=== PATIENT | female | born 1950 | race Caucasian/White ===

== ENCOUNTER 2024-08-30 18:31 | Inpatient (IN) | payer MEDICARE, SELFPAY ==
[2024-08-30 18:33] VITALS: BP 119/66; PULSE 89; RESP 16; TEMP 36.8; O2SAT 96; BMI 26.0
[2024-08-30 18:34] VITALS: BP 119/66; PULSE 89; RESP 16; TEMP 36.8; O2SAT 96
[2024-08-30 19:21] LABS: Absolute Lymphocyte Count 1.27 X10^3/uL (0.83-4.51); Absolute Neutrophil Count 11.1 X10^3/uL (2.0-7.7); Basophil# 0.05 X10^3/uL; Basophil% 0.4 % (0-1); Eosinophil# 0.01 X10^3/uL; Eosinophils% 0.1 % (0-5); Hemoglobin 13.2 g/dL (12.0-15.0); Lymphocyte # 1.27 X10^3/ul (0.83-4.51); Lymphocyte % 9.1 % (19-41); Mean Corp Hgb Conc 36.7 g/dL (32-36); Mean Corpuscular Hgb 33.2 pg (27.0-32.0); Mean Corpuscular Volume 90.5 fL (81-99); Mean Platelet Vol. 10.2 fl (6.2-12.0); Monocyte# 1.44 X10^3/uL; Monocyte% 10.3 % (0-10); NRBC Flagged by Analyzer 0 % (0-5); Neutrophil # 11.05 X10^3/uL (2.7-7.7); Neutrophil % 79.4 % (47-70); POSITIVE COUNT YES; Platelet Count 306 K/mm3 (150-450); RBC Distribution Width CV 12.3 % (11.6-14.6); Red Blood Count 3.98 M/mm3 (4.2-5.4); White Blood Count 13.9 K/mm3 (4.4-11.0)
[2024-08-30] MEDS: Ketorolac 15 MG/ML Vial IV (19:23)
[2024-08-30] MEDS: 0.9% Normal Saline (1000mL) 1,000 ML 999 ML IV (19:24)
--- NOTE | 2024-08-30 19:30 | CT_ITS ---
PROCEDURE: ABDOMEN/PELVIS WITHOUT CONT 08/30/2024 REASON FOR EXAM: L FLANK PAIN TECHNIQUE: Abdomen and pelvis CT without intravenous contrast. Noncontrast technique limits evaluation of the abdominal and pelvic viscera. Coronal and Sagittal reconstruction series were provided. One or more dose reduction techniques were used (e.g., Automated exposure control, adjustment of the mA and/or kV according to patient size, use of iterative reconstruction technique). PATIENT PREPARATION: Per protocol ORAL CONTRAST TYPE: None. AMOUNT: mL COMPARISON: None FINDINGS: Lung bases: Mild dependent atelectasis Liver: Homogeneous attenuation. Subcentimeter low-attenuation medial right hepatic lobe, too small to characterize is likely a benign cyst. Gallbladder: No ductal dilation. No cholelithiasis or wall thickening. Spleen: Normal size. Pancreas: Normal size. No surrounding inflammation. Adrenals: 28 mm left adrenal soft tissue attenuation lesion and 16 mm right adrenal low-attenuation nodule. These likely represent adenomas. Kidneys: Nonspecific bilateral perinephric soft tissue stranding, slightly more prominent on the left. No visualized calculi or hydronephrosis. Distal ureters are not well visualized due to streak artifact from bilateral hip hardware. Bladder: Limited visualization of the urinary bladder, due to streak artifact from hepatoma. Reproductive Organs: Within the limits of evaluation, from streak artifact, no obvious pelvic mass. Bowel: Small hiatal hernia. Stomach is unremarkable. No bowel dilation or wall thickening. Colonic diverticulosis without diverticulitis. Appendix: The appendix is not identified. There is no inflammatory process identified in the right lower quadrant to suggest appendicitis. Lymph nodes: No suspicious lymph node enlargement. Vasculature: Mild diffuse atherosclerotic calcifications are noted. Peritoneum / Retroperitoneum: No ascites. No pneumoperitoneum. Bones: Mild degenerative changes of the lumbar spine. Grade 1 anterolisthesis of L4 on L5. Bilateral hip prosthesis.. CT/Abdomen/Pelvis without Cont IMPRESSION: 1. Nonspecific [id number]-[id number]-vusb-right perinephric soft tissue stranding. Find ings may be secondary to acute pyelonephritis. 2. Colonic diverticulosis without diverticulitis. 3. Adrenal lesions as described above, likely represent adenomas. [facility]
[2024-08-30 19:41] LABS: Mucous, Urine 0 SEEN /hpf (<or=2+)
[2024-08-30 19:43] LABS: Color, Urine Yellow (Yellow); Glucose, Dipstick Normal (Normal); Ketone-Dipstick 50 mg/dl (Negative); Leukocyte Esterase-Dipstick 100 /ul (Negative); Nitrite-Dipstick Negative (Negative); Occult Blood-Urine 25 /ul (Negative); Protein-Dipstick 30 mg/dl (Negative); Specific Gravity, Urine 1.015 (1.002-1.030); Urine Bilirubin Dipstick Negative (Negative); Urine Clarity Clear (Clear); Urine Urobilinogen 4 mg/dl (Normal)
[2024-08-30 19:52] LABS: Differential Indicated SCAN CRITERIA MET
[2024-08-30 19:53] LABS: Platelet Estimate ADEQUATE (ADEQ)
--- NOTE | 2024-08-30 19:55 | EX.ED.DYSGE1 ---
HPI <PEGGY Gonzalez - Last Filed: 08/30/24 21:33> History of Present Illness Chief Complaint: Weakness Narrative Narrative: Patient presenting today due to concerns for UTI. She reports dysuria and urinary frequency since Tuesday, she went to urgent care on Tuesday and was diagnosed with a UTI and placed on Keflex twice daily. She reports that she has had 4 doses of this medication since Tuesday. She reports feeling slightly confused over the past few days, she describes this as having increased forgetfulness but not necessarily having any delirium. She denies history of UTIs. She reports that since yesterday she has had left-sided flank pain that radiates across her lower abdomen. She denies any history of kidney stones. She has a PMH of hypertension. She denies fevers, chills, nausea, and vomiting. PFSH <PEGGY Gonzalez - Last Filed: 08/30/24 21:33> PFSH Medical History Tobacco use Hypertension Home Medications ?Medication ?Instructions ?Recorded ?Last Taken ?Type ammonium lactate 12 % topical cream applic topical DAILY PRN dry skin 08/30/24 Unknown History cephalexin 500 mg capsule 500 mg PO BID 08/30/24 Unknown History losartan 100 1 tab PO DAILY 08/30/24 Unknown History mg-hydrochlorothiazide 25 mg tablet metoprolol succinate 100 mg 100 mg PO DAILY 08/30/24 Unknown History tablet,extended release 24 hr Allergy/AdvReac Type Severity Reaction Status Date / Time No Known Allergies Allergy Verified 08/30/24 18:32 Family History (Updated 08/30/24 @ 21:[address] Lisa Mariscal MD) Mother Diabetes Father Colon cancer Diagnosed in his 60s. Surgical History S/P appendectomy History of tonsillectomy and adenoidectomy Status post bilateral total hip replacement Social History (Updated 08/30/24 @ 21:[address] Lisa Mariscal MD) household members: spouse Smoking Status: Current some day smoker tobacco type: cigarettes alcohol intake: current alcohol intake frequency: 0-2 drinks per day Alcohol type: wine substance use type: does not use ROS <PEGGY Gonzalez - Last Filed: 08/30/24 21:33> ROS ED Constitutional Constitutional ED: Denies chills or fever(s) Cardiovascular Cardiovascular: Denies chest pain Respiratory/Chest Respiratory/Chest: Denies dyspnea Gastrointestinal Gastrointestinal: Reports abdominal pain; Denies nausea or vomiting Genitourinary Genitourinary ED: Reports dysuria and urinary frequency; Denies hematuria Musculoskeletal Musculoskeletal: Reports back pain Integumentary Denies rash Neurologic Neurologic: Denies weakness EXAM <PEGGY Gonzalez - Last Filed: 08/30/24 21:33> Physical Exam Const Vital Signs: 08/30/24 18:33 08/30/24 18:34 08/30/24 19:02 Temperature 98.3 F 98.3 F Temperature Source Oral Oral Pulse Rate 89 89 Respiratory Rate 16 16 Respiratory Effort Normal Non-Labored Respiratory Pattern Normal Blood Pressure 119/66 119/66 Blood Pressure Mean 83 83 Pulse Ox 96 96 Oxygen Delivery Method Room Air Room Air 08/30/24 20:00 08/30/24 21:00 08/30/24 21:00 Temperature 98.1 F 98.1 F 98.1 F Temperature Source Oral Oral Pulse Rate 76 72 71 Respiratory Rate 16 18 18 Respiratory Effort Respiratory Pattern Blood Pressure 157/77 H 154/65 H 154/65 H Blood Pressure Mean 103 94 94 Pulse Ox 97 97 97 Oxygen Delivery Method Room Air Room Air Positive well nourished, well developed and no apparent distress General Appearance ED: well developed HEENT Reports normocephalic and head/scalp atraumatic Mouth ED: Yes moist mucous membranes normal Eyes PERRL and EOMs intact bilaterally Neck full ROM and supple Chest Wall inspection of chest normal Resp normal respiratory effort and clear to auscultation bilaterally Cardio regular rate and regular rhythm GI soft to palpation, non-tender, non-distended and no masses Back/Spine normal ROM and normal to inspection General Back: CVA tenderness left Extremity normal to inspection and full ROM Neuro oriented x3, CN's II-XII intact bilaterally, moves all extremities, no focal motor deficits and no sensory deficits noted Sensorium / Orientation: awake and alert Psych mental status grossly normal and thought process normal Skin no rashes or lesions noted and no wounds <Dr. Darci Simpson DO - Last Filed: 08/31/24 02:23> Physical Exam Const Vital Signs: 08/30/24 18:33 08/30/24 18:34 08/30/24 19:02 Temperature 98.3 F 98.3 F Temperature Source Oral Oral Pulse Rate 89 89 Respiratory Rate 16 16 Respiratory Effort Normal Non-Labored Respiratory Pattern Normal Blood Pressure 119/66 119/66 Blood Pressure Mean 83 83 Pulse Ox 96 96 Oxygen Delivery Method Room Air Room Air 08/30/24 20:00 08/30/24 21:00 08/30/24 21:00 Temperature 98.1 F 98.1 F 98.1 F Temperature Source Oral Oral Pulse Rate 76 72 71 Respiratory Rate 16 18 18 Respiratory Effort Respiratory Pattern Blood Pressure 157/77 H 154/65 H 154/65 H Blood Pressure Mean 103 94 94 Pulse Ox 97 97 97 Oxygen Delivery Method Room Air Room Air [facility] <PEGGY Gonzalez - Last Filed: 08/30/24 21:33> [facility] Narrative Medical decision making narrative: Patient presenting today with urinary symptoms that have been ongoing since Tuesday, yesterday she developed urinary frequency. She was diagnosed with UTI on Tuesday and placed on Keflex twice daily which she has had 4 doses of. She reports that they did notice some blood in her urine. She does have left-sided CVA tenderness, CT scan of the abdomen pelvis will be obtained to assess for kidney stone. Also considering pyelonephritis. She reports confusion in the ED triage note, when asked to explain this she reports that she has just been more forgetful, she is not necessarily delirious and is alert and oriented x 4 on exam. Labs obtained, CBC shows a WBC of 13.9, her sodium is low at 125, potassium is 2.8, chloride 85, no RAFAELA. Patient given IV fluids, Toradol, and p.o. potassium. CT scan of the abdomen pelvis is concerning for pyelonephritis. I do feel she would benefit from admission to the hospital for further treatment with IV antibiotics, after speaking with hospitalist she will be admitted in stable condition. Lab Data Attestation: I reviewed the patient's lab results. Labs: Laboratory Results - last 24 hr 08/30/24 08/30/24 19:05 19:28 WBC 13.9 H RBC 3.98 L Hgb 13.2 Hct 36.0 L MCV 90.5 MCH 33.2 H MCHC 36.7 H RDW Std Deviation 41.0 RDW Coeff of [place] 12.3 Plt Count 306 MPV 10.2 Immature Gran % (Auto) 0.700 Neut % (Auto) 79.4 H Lymph % (Auto) 9.1 L [place] % (Auto) 10.3 H Eos % (Auto) 0.1 Baso % (Auto) 0.4 Absolute Neuts (auto) 11.1 H Absolute Lymphs (auto) 1.27 Nucleated RBC % 0 Platelet Estimate ADEQUATE Sodium 125 L Potassium 2.8 L Chloride 85 L Carbon Dioxide 26.3 Anion Gap 14 BUN 15 Creatinine 0.62 L Estim Creat Clear Calc 49.40 L Est GFR (MDRD) Non-Af 93 BUN/Creatinine Ratio 23.8 H Glucose 162 H Lactic Acid < 1.0 Calcium 9.1 Phosphorus 2.8 Magnesium 2.2 Urine Color Yellow Urine Clarity Clear Urine pH 6.0 Ur Specific [place] 1.015 Urine Protein 30 H Urine Glucose (UA) Normal Urine Ketones 50 H Urine Occult Blood 25 H Urine Nitrite Negative Urine Bilirubin Negative Urine Urobilinogen 4 H Ur Leukocyte Esterase 100 H Urine RBC 0-5 SEEN Urine WBC 10-25 SEEN Ur Squamous Epith Cells 0-5 SEEN Urine Bacteria 1+ Hyaline Casts 0-5 SEEN Urine Mucus 0 SEEN Radiography Diagnostic Testing: Clinical Impression(s) from Imaging Studies Abdomen/Pelvis CT 08/30/24 19:30 IMPRESSION: 1. Nonspecific dpeu-yfvonrt-gepz-right perinephric soft tissue stranding. Findings may be secondary to acute pyelonephritis. 2. Colonic diverticulosis without diverticulitis. 3. Adrenal lesions as described above, likely represent adenomas. Reading Location: [facility] <Dr. Darci Simpson, DO - Last Filed: 08/31/24 02:23> [facility] Narrative Medical decision making narrative: Patient presenting today with urinary symptoms that have been ongoing since Tuesday, yesterday she developed urinary frequency. She was diagnosed with UTI on Tuesday and placed on Keflex twice daily which she has had 4 doses of. She reports that they did notice some blood in her urine. She does have left-sided CVA tenderness, CT scan of the abdomen pelvis will be obtained to assess for kidney stone. Also considering pyelonephritis. She reports confusion in the ED triage note, when asked to explain this she reports that she has just been more forgetful, she is not necessarily delirious and is alert and oriented x 4 on exam. Labs obtained, CBC shows a WBC of 13.9, her sodium is low at 125, potassium is 2.8, chloride 85, no RAFAELA. Patient given IV fluids, Toradol, and p.o. potassium. CT scan of the abdomen pelvis is concerning for pyelonephritis. I do feel she would benefit from admission to the hospital for further treatment with IV antibiotics, after speaking with hospitalist she will be admitted in stable condition. Supervisory Physician Note Patient was seen and examined with the Advanced Practice Provider. Nursing notes and vital signs have been reviewed. Pertinent old records have been reviewed. I agree with the essential elements of the [facility]'s history, physical exam, assessment, and plan. The differential diagnosis and management options were discussed with the [facility]. I participated in determining and agree with the management, procedures, final impression and disposition as documented. See changes noted by me. Please see addendum or separate note for any additional details. 73-year-old female presents for evaluation of weakness, dysuria, left flank pain with current UTI. On antibiotics. Decreased p.o. intake. Gen: A&O x3, NAD Head: Normocephalic, atraumatic Eyes: No sclera icterus, conjunctiva clear ENT: Dry mucous membranes Neck: Trachea midline, No JVD CV: RRR, no murmurs, no peripheral edema Resp: Lungs CTA BL, no w/r/c GI: Abd soft, non-distended, non-tender, no r/r/g : + Left-sided CVA tenderness Musc: Full ROM, no deformity Skin: Warm, dry Neuro: Alert, oriented, grossly intact, sensation intact Psych: Cooperative, appropriate mood and affect Differential diagnosis includes but is not limited to pyelonephritis, urolithiasis, electrolyte abnormality, RAFAELA. Laboratory workup ordered including CT abdomen pelvis without contrast. Symptoms treated. CBC with leukocytosis of 13.9. No anemia. BMP consistent with dehydration. Patient has hyponatremia 125 and hypokalemia of 2.8. No RAFAELA. Lactic acid unremarkable. Potassium ordered. UA positive for UTI. Urine culture ordered. CT abdomen pelvis shows nonspecific left greater than right perinephric soft tissue stranding. Findings concerning for acute pyelonephritis. This correlates clinically. Rocephin ordered. Patient will warrant admission given her electrolyte derangements. Patient was discussed with the hospitalist who accepted admission. CT abdomen pelvis also showed likely adrenal adenomas. This needs to be further worked up outpatient. Impression: 1. Left pyelonephritis 2. Moderate hyponatremia 3. Moderate hypokalemia 4. Dehydration Lab Data Labs: Laboratory Results - last 24 hr 08/30/24 08/30/24 19:05 19:28 WBC 13.9 H RBC 3.98 L Hgb 13.2 Hct 36.0 L MCV 90.5 MCH 33.2 H MCHC 36.7 H RDW Std Deviation 41.0 RDW Coeff of [place] 12.3 Plt Count 306 MPV 10.2 Immature Gran % (Auto) 0.700 Neut % (Auto) 79.4 H Lymph % (Auto) 9.1 L [place] % (Auto) 10.3 H Eos % (Auto) 0.1 Baso % (Auto) 0.4 Absolute Neuts (auto) 11.1 H Absolute Lymphs (auto) 1.27 Nucleated RBC % 0 Platelet Estimate ADEQUATE Sodium 125 L Potassium 2.8 L Chloride 85 L Carbon Dioxide 26.3 Anion Gap 14 BUN 15 Creatinine 0.62 L Estim Creat Clear Calc 49.40 L Est GFR (MDRD) Non-Af 93 BUN/Creatinine Ratio 23.8 H Glucose 162 H Lactic Acid < 1.0 Calcium 9.1 Phosphorus 2.8 Magnesium 2.2 Urine Color Yellow Urine Clarity Clear Urine pH 6.0 Ur Specific [place] 1.015 Urine Protein 30 H Urine Glucose (UA) Normal Urine Ketones 50 H Urine Occult Blood 25 H Urine Nitrite Negative Urine Bilirubin Negative Urine Urobilinogen 4 H Ur Leukocyte Esterase 100 H Urine RBC 0-5 SEEN Urine WBC 10-25 SEEN Ur Squamous Epith Cells 0-5 SEEN Urine Bacteria 1+ Hyaline Casts 0-5 SEEN Urine Mucus 0 SEEN Radiography Diagnostic Testing: Clinical Impression(s) from Imaging Studies Abdomen/Pelvis CT 08/30/24 19:30 IMPRESSION: 1. Nonspecific [id number]-rnodaad-gekq-right perinephric soft tissue stranding. Findings may be secondary to acute pyelonephritis. 2. Colonic diverticulosis without diverticulitis. 3. Adrenal lesions as described above, likely represent adenomas. Reading Location: [facility] Discharge Plan Dx/Rx/DC Orders Clinical Impression: Acute pyelonephritis Disposition Disposition: Acute Care Hospital [facility] Discharge Date/Time: 08/30/24 21:55
[2024-08-30 19:58] LABS: Anion Gap 14 (5-15); BUN 15 mg/dL (4-19); BUN/Creat Ratio 23.8 RATIO (10-20); Calcium,Total 9.1 mg/dL (7.6-11.0); Carbon Dioxide 26.3 mmol/L (21.0-32.0); Chloride 85 mmol/L (98-108); Creatinine, Serum 0.62 mg/dL (0.70-1.20); EST Glomerular Filtration Rate 93 (>60); Glucose 162 mg/dL (70-99); Lactic Acid < 1.0 mmol/L (0.0-2.0); Potassium 2.8 mmol/L (3.3-5.1); Sodium Level 125 mmol/L (133-145)
[2024-08-30 20:00] VITALS: BP 157/77; PULSE 76; RESP 16; TEMP 36.7; O2SAT 97
[2024-08-30] MEDS: Ceftriaxone 1 GM/50 ML BAG IV (20:27)
[2024-08-30] MEDS: Potassium Chloride Oral Tablet 20 MEQ 40 MEQ PO (20:27)
[2024-08-30 20:44] LABS: White Blood Cells 10-25 SEEN /hpf (0-5)
[2024-08-30 20:45] LABS: Bacteria 1+ /hpf (None Seen); Red Blood Cells-Urine 0-5 SEEN /hpf (0-5)
[2024-08-30 20:46] LABS: Hyaline Cast 0-5 SEEN /lpf (0-5); Squamous Epithelial Cells - UA 0-5 SEEN /hpf (5-10)
[2024-08-30 21:00] VITALS: BP 154/65; PULSE 71; PULSE 72; RESP 18; TEMP 36.7; O2SAT 97
--- NOTE | 2024-08-30 21:14 | PCM.HP.STD ---
HPI - General General Date of Admission: 08/30/24 Date of Service: 08/30/24 Chief Complaint: Recent UTI diagnosis, onset new flank pain, mild confusion. HPI Narrative The patient is a 73 y/o F w/ PMHx: Tobacco use, HTN who presents to the [facility] ED on 08/30/2024 with history of onset dysuria and urinary frequency starting Tuesday with urgent care evaluation eventually on Tuesday with diagnosis of UTI placed on Keflex specifically filled 08/28/2024 filled Keflex 500 mg 1 p.o. twice daily x 7-day regimen with 4 doses of this medication with increased fatigue, malaise, slight confusion described as a forgetfulness with onset of left-sided flank discomfort with radiation across the lower abdomen with no fevers or chills but given this new onset prompted ED evaluation. She notes the flank discomfort was rated 8-9 out of 10 in severity aching and sharp however following ED intervention she currently ranks it 1 out of 10 in severity. She denies any nausea or emesis with this but does state that she has had significantly decreased appetite. Workup in the ED included T98.3, heart rate 89, BP 119/66, respiratory rate 16, 96% on room air with most recent repeat labs T98.1, heart rate 76, BP 157/77, respiratory rate 16, 97% room air, CBC with WBC 13.9, hemoglobin 13.2, platelet 306 with left shift, BMP with sodium 125, potassium 2.8 with hemolysis present less likely mildly falsely elevated above True Value, chloride 85, BUN/creatinine 15/0.62, GFR 93, glucose 162, lactic acid less than 1, urinalysis with specific value 1.015, urine protein 30, ketones 50, occult blood 25, leukocyte Estrace 100 with urine WBCs 10-25 with 1+ urine bacteria, urine culture pending per ED, CT abdomen and pelvis without any contrast with nonspecific left greater than right perinephric soft tissue stranding possibly secondary to acute pyelonephritis, colonic diverticulosis, incidentally noted 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 In the ED patient administered 1 L normal saline, Rocephin 1 g IV x 1, Toradol 50 mg IV x 1, potassium chloride 40 mill equivalent p.o. x 1. [facility] Medical History Tobacco use Hypertension Home Medications ?Medication ?Instructions ?Recorded ?Last Taken ?Type ammonium lactate 12 % topical cream applic topical DAILY 08/30/24 Unknown History cephalexin 500 mg capsule 500 mg PO BID 08/30/24 Unknown History losartan 100 1 tab PO DAILY 08/30/24 Unknown History mg-hydrochlorothiazide 25 mg tablet metoprolol succinate 100 mg 100 mg PO DAILY 08/30/24 Unknown History tablet,extended release 24 hr Allergy/AdvReac Type Severity Reaction Status Date / Time No Known Allergies Allergy Verified 08/30/24 18:32 Family History (Updated 08/30/24 @ 21:[address] Lisa Mariscal MD) Mother Diabetes Father Colon cancer Diagnosed in his 60s. Surgical History S/P appendectomy History of tonsillectomy and adenoidectomy Status post bilateral total hip replacement Social History (Updated 08/30/24 @ 21:[address] Lisa Mariscal MD) household members: spouse Smoking Status: Current some day smoker tobacco type: cigarettes alcohol intake: current alcohol intake frequency: 0-2 drinks per day Alcohol type: wine substance use type: does not use ROS ROS Narrative Admission Review of Systems: CONSTITUTIONAL: No weight loss, fever, chills, + weakness or fatigue. HEENT: Eyes: No visual loss, blurred vision, double vision or yellow sclerae. Ears, Nose, Throat: No hearing loss, sneezing, congestion, runny nose or sore throat. SKIN: No rash or itching, lesions, wounds. CARDIOVASCULAR: No chest pain, chest pressure or chest discomfort, palpitations, edema, orthopnea, syncopal events. RESPIRATORY: No shortness of breath, cough or sputum, wheezing, hemoptysis. GASTROINTESTINAL: + Decreased appetite/anorexia. No nausea, vomiting or diarrhea, abdominal pain, melena, BRBPR. GENITOURINARY: + Dysuria, increased urinary frequency, flank discomfort. No urgency or retention. NEUROLOGICAL: No headache, dizziness, syncope, paralysis, ataxia, numbness or tingling in the extremities, focal weakness, change in bowel or bladder control, seizure. MUSCULOSKELETAL: + muscle, back pain, joint pain or stiffness. HEMATOLOGIC: No anemia, bleeding or bruising. LYMPHATICS: No enlarged nodes. No history of splenectomy. PSYCHIATRIC: No history of depression or anxiety. ENDOCRINOLOGIC: No reports of sweating, cold or heat intolerance. No polyuria or polydipsia. ALLERGIES: No history of asthma, hives, eczema or rhinitis. Vital Signs Vital Signs Vital Signs: 08/30/24 18:33 08/30/24 18:34 08/30/24 19:02 Temperature 98.3 F 98.3 F Temperature Source Oral Oral Pulse Rate 89 89 Respiratory Rate 16 16 Respiratory Effort Normal Non-Labored Respiratory Pattern Normal Blood Pressure 119/66 119/66 Blood Pressure Mean 83 83 Pulse Ox 96 96 Oxygen Delivery Method Room Air Room Air 08/30/24 20:00 Temperature 98.1 F Temperature Source Oral Pulse Rate 76 Respiratory Rate 16 Respiratory Effort Respiratory Pattern Blood Pressure 157/77 H Blood Pressure Mean 103 Pulse Ox 97 Oxygen Delivery Method Room Air Weight Weight: 133 lb 6.4 oz Body Mass Index (BMI) 26.0 Physical Exam Narrative Physical Examination: General: Awake, alert, oriented x 3 and cooperative, seated upright in the ED bed, fatigued otherwise no acute distress, notes flank discomfort improved currently 1 out of 10 in severity. Skin: Normal color, normal turgor, no icterus, no cyanosis. HEENT: AT/NC, EOMI, PERRLA, moderately dry MM, no carotid bruits or JVD noted. Lungs: CTA bilaterally, moderate effort, mild decrease BL bases, no rales, ronchi or wheezing. Heart: Regular rate and rhythm; no gallop, rub audible. Abdomen: Soft, mild discomfort to palpation primarily of the left flank but minimal, not significantly improved since initial ED arrival, no marked distention, hyperactive BS, no HSM discerned. Extremities: No cyanosis, clubbing, or edema. Neurological: Patient awake, alert, oriented as noted, cognitive function intact; pupils equally reactive to light and accommodation, cranial nerves gross normal, moving all 4 extremities, no focal deficits, strength moderately globally decreased secondary to acute presentation. Psychiatric: Affect appears flat, fatigued, no acute evidence of depressive or anxiety feelings. Results Lab / Micro Data 08/30/24 19:05 08/30/24 19:05 Labs: Laboratory Results - last 24 hr 08/30/24 19:05: WBC 13.9 H, RBC 3.98 L, Hgb 13.2, Hct 36.0 L, MCV 90.5, MCH 33.2 H, MCHC 36.7 H, RDW Std Deviation 41.0, RDW Coeff of [place] 12.3, Plt Count 306, MPV 10.2, Immature Gran % (Auto) 0.700, Neut % (Auto) 79.4 H, Lymph % (Auto) 9.1 L, [place] % (Auto) 10.3 H, Eos % (Auto) 0.1, Baso % (Auto) 0.4, Absolute Neuts (auto) 11.1 H, Absolute Lymphs (auto) 1.27, Nucleated RBC % 0, Platelet Estimate ADEQUATE, Sodium 125 L, Potassium 2.8 L, Chloride 85 L, Carbon Dioxide 26.3, Anion Gap 14, BUN 15, Creatinine 0.62 L, Estim Creat Clear Calc 49.40 L, Est GFR (MDRD) Non-Af 93, BUN/Creatinine Ratio 23.8 H, Glucose 162 H, Lactic Acid < 1.0, Calcium 9.1 08/30/24 19:28: Urine Color Yellow, Urine Clarity Clear, Urine pH 6.0, Ur Specific [place] 1.015, Urine Protein 30 H, Urine Glucose (UA) Normal, Urine Ketones 50 H, Urine Occult Blood 25 H, Urine Nitrite Negative, Urine Bilirubin Negative, Urine Urobilinogen 4 H, Ur Leukocyte Esterase 100 H, Urine RBC 0-5 SEEN, Urine WBC 10-25 SEEN, Ur Squamous Epith Cells 0-5 SEEN, Urine Bacteria 1+, Hyaline Casts 0-5 SEEN, Urine Mucus 0 SEEN Imaging Radiology Impression Abdomen/Pelvis CT 08/30/24 19:30 IMPRESSION: 1. Nonspecific [id number]-right perinephric soft tissue stranding. Findings may be secondary to acute pyelonephritis. 2. Colonic diverticulosis without diverticulitis. 3. Adrenal lesions as described above, likely represent adenomas. Reading Location: [facility] Assessment & Plan Assessment/Plan (1) Acute pyelonephritis: PLAN: Plan The patient is a 73 y/o F w/ PMHx: Tobacco use, HTN who presents to the [facility] ED on 08/30/2024 with history of onset dysuria and urinary frequency starting Tuesday with urgent care evaluation eventually on Tuesday with diagnosis of UTI placed on Keflex specifically filled 08/28/2024 filled Keflex 500 mg 1 p.o. twice daily x 7-day regimen with 4 doses of this medication with increased fatigue, malaise, slight confusion described as a forgetfulness with onset of left-sided flank discomfort with radiation across the lower abdomen with no fevers or chills but given this new onset prompted ED evaluation. #1. Debility, Fatigue, Possible mild Acute Encephalopathy with Adult FTT secondary to Acute Pyelonephritis, unclear organism with failure of outpatient abx therapy: Will admit to [facility] given stable vital signs, UA upon ED evaluation remarkable, pending UCx, maintain on judicious IVFs, monitor I/Os, continue IV Rocephin w/ transition as able pending sensitivities and speciation. Will maintain on fall precautions. PT/OT/case management consulted for discharge planning. #2. Hyponatremia, hypochloremia, suspect hypovolemic etiology in addition to diuretic medication given current presentation: Admission sodium 125, chloride 85, unclear previous baseline thus uncertain but does appear to be consistent with more hypovolemic etiology, will continue hydration and repeat CMP in AM. #3. Hypokalemia: Admission K+ 2.8, likely further decreased from this value secondary being slightly hemolyzed, magnesium level requested, supplementation given, repeat level in AM. #4. Hyperglycemia: No reported diabetic history, admission glucose 162, to be cautious will obtain hemoglobin A1c. #5. Incidentally noted adrenal lesions: CT imaging with adrenal lesions suspicious for adenomas, encouraged continued follow-up outpatient. #6. Hypertension: Will continue patient home losartan regimen however will hold hydrochlorothiazide given electrolyte disturbances, continue metoprolol also with hold parameters. #7. Tobacco Abuse: Encouraged cessation, inpatient consultation per RT, NR if desired. #8. DVT prophylaxis: Lovenox. #9. CODE status: Patient HCPOA is her and living will is per her description in place. Discussed CODE status at length including difference between FULL code, DNR-CCA and DNR-CC status. Following discussions about the differences in these status, requested Full Code status. Charges/Coding Visit Charges Inpatient E&M: 46813 Init Hosp L3
[2024-08-30 21:58] LABS: Magnesium 2.2 mg/dL (1.5-2.2)
[2024-08-30 22:06] VITALS: BMI 26.4
[2024-08-30 22:28] VITALS: BP 132/64; PULSE 77; RESP 18; TEMP 36.9; O2SAT 97
[2024-08-30 22:48] LABS: Phosphorus 2.8 mg/dL (2.7-4.5)
[2024-08-30] MEDS: 0.9% Saline Lock 10 ML Syringe IV (22:52)
[2024-08-30] MEDS: 0.9% Normal Saline (1000mL) 1,000 ML 100 ML IV (22:52)
[2024-08-30] MEDS: Potassium Chloride Oral Tablet 20 MEQ PO (22:52)
[2024-08-31 05:54] VITALS: BP 115/66; PULSE 89; RESP 18; TEMP 37.7; O2SAT 97
[2024-08-31 05:58] VITALS: BMI 26.6
[2024-08-31] MEDS: Acetaminophen 325 MG Tablet 650 MG PO (05:59)
[2024-08-31 07:20] LABS: Absolute Lymphocyte Count 1.66 X10^3/uL (0.83-4.51); Basophil# 0.04 X10^3/uL; Basophil% 0.4 % (0-1); Eosinophil# 0.05 X10^3/uL; Eosinophils% 0.4 % (0-5); Hematocrit 32.9 % (37-47); Hemoglobin 11.6 g/dL (12.0-15.0); Lymphocyte # 1.66 X10^3/ul (0.83-4.51); Lymphocyte % 14.7 % (19-41); Mean Corp Hgb Conc 35.3 g/dL (32-36); Mean Corpuscular Hgb 32.8 pg (27.0-32.0); Mean Corpuscular Volume 92.9 fL (81-99); Monocyte# 1.49 X10^3/uL; Monocyte% 13.2 % (0-10); NRBC Flagged by Analyzer 0 % (0-5); Neutrophil # 7.99 X10^3/uL (2.7-7.7); Neutrophil % 70.6 % (47-70); Platelet Count 304 K/mm3 (150-450); RBC Distribution Width CV 12.5 % (11.6-14.6); Red Blood Count 3.54 M/mm3 (4.2-5.4); White Blood Count 11.3 K/mm3 (4.4-11.0)
[2024-08-31 07:32] VITALS: O2SAT 94
[2024-08-31 07:47] LABS: ALB/GLOB Ratio 1.4 RATIO (0.9-2.4); AST(SGOT) 21 U/L (<=31); Alanine Aminotransfer ALT/SGPT 18 U/L (<=34); Albumin, Serum 3.2 g/dL (3.4-4.8); Alkaline Phosphatase 41 U/L (35-104); Anion Gap 13 (5-15); BUN 15 mg/dL (4-19); BUN/Creat Ratio 28.8 RATIO (10-20); Calcium,Total 8.4 mg/dL (7.6-11.0); Chloride 92 mmol/L (98-108); Creatinine, Serum 0.52 mg/dL (0.70-1.20); EST Glomerular Filtration Rate 97 (>60); Estimated Creatinine Clearance 49.74 ml/min (50-250); Globulin 2.3 g/dL (2.2-4.2); Glucose 110 mg/dL (70-99); Potassium 3.2 mmol/L (3.3-5.1); Protein, Total 5.5 g/dL (5.9-8.4); Sodium Level 128 mmol/L (133-145); Total Bilirubin 0.37 mg/dL (0.00-1.30)
[2024-08-31 08:00] VITALS: BP 119/64; PULSE 71; RESP 15; TEMP 36.7; O2SAT 94
[2024-08-31 08:21] VITALS: PULSE 71
[2024-08-31 08:21] LABS: Hemoglobin A1c 5.6 % (<=5.6)
[2024-08-31] MEDS: Potassium Chloride Oral Tablet 20 MEQ 40 MEQ PO (08:21)
[2024-08-31] MEDS: Metoprolol(XL)Succ 100 MG Tablet PO (08:21)
[2024-08-31] MEDS: 0.9% Normal Saline (1000mL) 1,000 ML 250 ML IV (08:22)
[2024-08-31] MEDS: Enoxaparin 40 MG/0.4 ML Syringe SC (08:22)
[2024-08-31] MEDS: Losartan Potassium 100 MG Tablet PO (08:24)
--- NOTE | 2024-08-31 10:43 | PCM.PN.HOSP ---
Reason for Visit Reason for Visit: Diagnoses Acute pyelonephritis (08/30/24) Subjective Subjective Saw patient at bedside this morning. Patient was mildly fatigued appearing but otherwise sitting back comfortably in bedside chair, conversing normally and in no acute distress. States that she feels moderately better today compared to yesterday. Has only mild flank pain this morning. Denies any fevers or chills. No other new concerns today. Objective Data Objective Data Vital Signs: Vital Signs Temp Pulse Resp BP Pulse Ox O2 Del Method 98.0 F 71 15 119/64 94 Room Air 08/31/24 08:00 08/31/24 08:21 08/31/24 08:00 08/31/24 08:00 08/31/24 08:00 08/31/24 08:00 Oxygen Delivery Method Room Air Weight: 61.4 kg Body Mass Index (BMI) 26.6 Intake & Output: Intake and Output for Last 24 Hours 08/29/24 08/30/24 08/31/24 23:59 23:59 23:59 Intake Total 1050 / 1350 1563.33 / 1563.33 Balance 1050 / 1350 1563.33 / 1563.33 Lab / Micro Data 08/31/24 06:25 08/31/24 06:25 Labs: Laboratory Results - last 24 hr 08/30/24 19:05: WBC 13.9 H, RBC 3.98 L, Hgb 13.2, Hct 36.0 L, MCV 90.5, MCH 33.2 H, MCHC 36.7 H, RDW Std Deviation 41.0, RDW Coeff of [place] 12.3, Plt Count 306, MPV 10.2, Immature Gran % (Auto) 0.700, Neut % (Auto) 79.4 H, Lymph % (Auto) 9.1 L, [place] % (Auto) 10.3 H, Eos % (Auto) 0.1, Baso % (Auto) 0.4, Absolute Neuts (auto) 11.1 H, Absolute Lymphs (auto) 1.27, Nucleated RBC % 0, Platelet Estimate ADEQUATE, Sodium 125 L, Potassium 2.8 L, Chloride 85 L, Carbon Dioxide 26.3, Anion Gap 14, BUN 15, Creatinine 0.62 L, Estim Creat Clear Calc 49.40 L, Est GFR (MDRD) Non-Af 93, BUN/Creatinine Ratio 23.8 H, Glucose 162 H, Lactic Acid < 1.0, Calcium 9.1, Phosphorus 2.8, Magnesium 2.2 08/30/24 19:28: Urine Color Yellow, Urine Clarity Clear, Urine pH 6.0, Ur Specific [place] 1.015, Urine Protein 30 H, Urine Glucose (UA) Normal, Urine Ketones 50 H, Urine Occult Blood 25 H, Urine Nitrite Negative, Urine Bilirubin Negative, Urine Urobilinogen 4 H, Ur Leukocyte Esterase 100 H, Urine RBC 0-5 SEEN, Urine WBC 10-25 SEEN, Ur Squamous Epith Cells 0-5 SEEN, Urine Bacteria 1+, Hyaline Casts 0-5 SEEN, Urine Mucus 0 SEEN 08/31/24 06:25: WBC 11.3 H, RBC 3.54 L, Hgb 11.6 L, Hct 32.9 L, MCV 92.9, MCH 32.8 H, MCHC 35.3, RDW Std Deviation 43.0, RDW Coeff of [place] 12.5, Plt Count 304, MPV 10.0, Immature Gran % (Auto) 0.700, Neut % (Auto) 70.6 H, Lymph % (Auto) 14.7 L, [place] % (Auto) 13.2 H, Eos % (Auto) 0.4, Baso % (Auto) 0.4, Absolute Neuts (auto) 8.0 H, Absolute Lymphs (auto) 1.66, Nucleated RBC % 0, Sodium 128 L, Potassium 3.2 L, Chloride 92 L, Carbon Dioxide 23.0, Anion Gap 13, BUN 15, Creatinine 0.52 L, Estim Creat Clear Calc 49.74 L, Est GFR (MDRD) Non-Af 97, BUN/Creatinine Ratio 28.8 H, Glucose 110 H, Hemoglobin A1c 5.6, Calcium 8.4, Total Bilirubin 0.37, AST 21, ALT 18, Alkaline Phosphatase 41, Total Protein 5.5 L, Albumin 3.2 L, Globulin 2.3, Albumin/Globulin Ratio 1.4 Radiography Diagnostic Testing: Radiology Impression Abdomen/Pelvis CT 08/30/24 19:30 IMPRESSION: 1. Nonspecific uaue-tvqavfd-yyyy-right perinephric soft tissue stranding. Findings may be secondary to acute pyelonephritis. 2. Colonic diverticulosis without diverticulitis. 3. Adrenal lesions as described above, likely represent adenomas. Reading [facility] Physical Exam Const alert, oriented x3, no apparent distress and average body habitus Constitutional Narrative: Pleasant elderly female, mildly fatigued appearing, otherwise sitting back comfortably in bedside chair, conversing normally, in no acute distress. General Appearance: cooperative and comfortable HEENT normocephalic, head/scalp atraumatic, hearing grossly normal bilaterally, nasal mucous membranes and turbinates normal and moist oral mucous membranes Eyes PERRL, EOMs intact bilaterally and conjunctivae normal Neck full ROM Chest inspection of chest normal Resp normal respiratory effort, normal air movement, no use of accessory muscles and clear to auscultation bilaterally Cardio regular rate, regular rhythm, no murmurs and peripheral pulses 2+ throughout GI normal to inspection, nondistended, normoactive bowel sounds, soft to palpation, non-tender and non-distended Bladder / Kidney Exam: bladder normal to palpation and No no CVA tenderness Back/Spine normal ROM Extremity normal to inspection, full ROM and no pedal edema Skin no rashes or lesions noted Psych mental status grossly normal Assessment & Plan Assessment/Plan (1) Acute pyelonephritis: PLAN: Plan Patient is a 73-year-old female who presented to [facility] ED on 08/30/2024 with dysuria, flank pain and confusion. 1. Acute pyelonephritis ? Presented with dysuria, flank pain and confusion. UA on admit infectious appearing. CT abdomen pelvis without contrast showed nonspecific left greater than right perinephric soft tissue stranding consistent with acute pyelonephritis. Urine culture pending. No prior urine culture result available. Treating with IV ceftriaxone with good improvement in symptoms; will continue this and if patient remains stable tomorrow, we will plan to discharge home on p.o. antibiotics pending urine culture results. 2. Hyponatremia ? Sodium 125 on admit, chloride 85. Improved to sodium 128 and chloride 92 with IV fluids. Presume secondary to infection and recent poor p.o. intake. Given further IV fluids on 08/31, follow-up daily BMP. 3. Hypokalemia ? Potassium 2.8 on admit. Mag and Phos normal. Replete as needed. 4. Mild acute debility ? PT/OT/case management following. Patient reported some weakness on admission that is suspected secondary to acute infection. Very good therapy scores, will be stable for discharge home with no therapy needs. 5. Hypertension ? BP stable to mildly hypertensive on admit. Continue home medications. 6. Tobacco use disorder ? Denied need for NRT while inpatient. Discussed cessation on discharge. DVT prophylaxis: Lovenox CODE STATUS: Full code, verified Expected disposition: Home, 1 to 2 days Total clinical time spent by myself addressing the patient's medical issues, reviewing all the data, and collaborating with patient's care team: 35 minutes. Charges/Coding Visit Charges Inpatient E&M: 40187 Subs Hosp L2
--- NOTE | 2024-08-31 12:50 | CASEMGMT ---
ALMA JHA Assessment: Face to Face with pt for initial transition planning/care coordination assessment. RN YUDELKA introduced self and role at [facility], pt voices understanding and consents to assessment. Pt is A&O x4 and answers all questions appropriately at this time. Pt lying in bed in no distress. Care providers, pharmacy, and demographics verified/updated. Admitting Dx: acute pyelonephritis, adult FTT, failed outpt abx Strata Score: 1 PCP:Adriana Specialists:marycruz Becerra Preferred Pharmacy: [facility] Insurance: [facility] Prescription Benefit: yes LNOK: Mayo Jennings, ; Gauri tSrange, cousin Living Arrangements: Pt lives with in a single story home with 3 steps to enter with a rail. Pt reports she is I in ADL/IADLs and denies concerns at home. Transportation: Pt drives self and denies concerns with transportation. DME:walk in shower with grab bar HHC/SNF: Denies hx of Pt states no concerns with going home at time of dc. No PT recommended. Pt states no further concerns/needs. CM to follow. Advised pt to ask CM if any further questions/concerns/needs arise, voices understanding. Pt Goal: Home Plan: Home Julianna MARQUEZ CM
[2024-08-31 13:50] VITALS: BP 135/79; PULSE 75; RESP 14; TEMP 36.9; O2SAT 97
[2024-08-31] MEDS: 0.9% Saline Lock 10 ML Syringe IV (13:54)
[2024-08-31] MEDS: 0.9% Normal Saline (1000mL) 1,000 ML 500 ML IV (13:54)
[2024-08-31 21:13] VITALS: BP 130/57; PULSE 70; RESP 17; TEMP 37; O2SAT 95
[2024-08-31] MEDS: Ceftriaxone 1 GM/50 ML BAG IV (21:19)
[2024-09-01 05:36] VITALS: BP 127/67; PULSE 60; RESP 16; TEMP 36.5; O2SAT 97
[2024-09-01 05:37] VITALS: BMI 26.4
[2024-09-01 06:43] LABS: Hematocrit 32.6 % (37-47); Hemoglobin 11.4 g/dL (12.0-15.0); Mean Corpuscular Hgb 32.8 pg (27.0-32.0); Mean Corpuscular Volume 93.7 fL (81-99); Mean Platelet Vol. 9.7 fl (6.2-12.0); Platelet Count 286 K/mm3 (150-450); RBC Distribution Width CV 12.6 % (11.6-14.6); RBC Distribution Width SD 43.4 fl (35.1-43.9); Red Blood Count 3.48 M/mm3 (4.2-5.4); White Blood Count 10.5 K/mm3 (4.4-11.0)
[2024-09-01 07:09] LABS: Anion Gap 10 (5-15); BUN 9 mg/dL (4-19); Calcium,Total 8.5 mg/dL (7.6-11.0); Carbon Dioxide 24.1 mmol/L (21.0-32.0); Chloride 99 mmol/L (98-108); Creatinine, Serum 0.48 mg/dL (0.70-1.20); EST Glomerular Filtration Rate 99 (>60); Estimated Creatinine Clearance 49.63 ml/min (50-250); Glucose 108 mg/dL (70-99); Potassium 3.5 mmol/L (3.3-5.1); Sodium Level 133 mmol/L (133-145)
[2024-09-01 07:39] VITALS: O2SAT 94
--- NOTE | 2024-09-01 09:26 | DCINST_ITS ---
Discharge Instructions Diet Discharge Diet: No restrictions DC O2, CPAP, BIPAP needs Home O2 Discharge instructions: No Dressing / Incision Discharge Activity: No Restrictions Follow Up Care Test Results: Test results from this visit will be discussed in further detail at your follow- up appointment, if applicable. Discharge Plan Admission Admit Date/Time: 08/30/24 21:16 Primary Reason for Your Visit: UTI symptoms Attending Provider: Steven Hobson Primary Care Provider: Talat Wright Consulting Providers: Lisa Mariscal Discharge Orders/Prescriptions Prescriptions: New ciprofloxacin HCl 250 mg tablet 250 mg PO BID 5 Days Qty: 10 0RF Continued metoprolol succinate 100 mg tablet extended release 24 hr 100 mg PO DAILY losartan-hydrochlorothiazide 100-25 mg tablet 1 tab PO DAILY ammonium lactate 12 % cream topical DAILY PRN (Reason: dry skin) Discontinued cephalexin 500 mg capsule 500 mg PO BID Referrals / Follow Up: Talat Wright MD [Primary Care Provider] - Disposition Disposition (needs filled in before D/C Order can be placed): Home, Self Care
--- NOTE | 2024-09-01 09:30 | DS.PCM_ITS ---
Providers Date of Admission: 08/30/24 Date of Discharge: 09/01/24 Primary Care Physician: Dr. Talat Wright MD Reason For Visit: ACUTE PYELONEPHRITIS, ADULT FTT, FAILED OUTPT ABX Diagnosis Discharge Diagnosis (1) Acute pyelonephritis: Status: Acute Code(s): N10 - Acute pyelonephritis Medications at Discharge Home Medications ammonium lactate 12 % topical cream applic topical DAILY PRN dry skin 08/30/24 losartan 100 mg-hydrochlorothiazide 25 mg tablet 1 tab PO DAILY 08/30/24 metoprolol succinate 100 mg tablet,extended release 24 hr 100 mg PO DAILY 08/30/24 ciprofloxacin HCl 250 mg tablet 250 mg PO BID 5 days #10 tabs 09/01/24 Hospital Course Operations None Procedures - (CT abdomen pelvis without contrast) Summary of Care Provided Minutes Spent on Discharge: 35 Hospital Course: Patient is a 73-year-old female who presented to [facility] ED on 08/30/2024 with dysuria, flank pain and mild confusion. Hospital course as noted below. Patient discharged home in stable condition on 09/01. 1. Acute pyelonephritis ? Presented with dysuria, flank pain and confusion. UA on admit infectious appearing. CT abdomen pelvis without contrast showed nonspecific left greater than right perinephric soft tissue stranding consistent with acute pyelonephritis. Urine culture growing only < 1000 K of presumptive E. coli. No prior urine culture result available. Treated with IV ceftriaxone while inpatient with good improvement in symptoms. Discharged home on p.o. ciprofloxacin to complete 7-day course of antibiotics total. 2. Hyponatremia, improved ? Sodium 125 on admit, chloride 85. Presume secondary to infection and recent poor p.o. intake. Improved to sodium 133 and chloride 99 by day of discharge with significant IV fluid resuscitation. 3. Hypokalemia ? Potassium 2.8 on admit. Mag and Phos normal. Repleted while inpatient and normalized by discharge. 4. Mild acute debility ? PT/OT/case management followed. Patient reported some weakness on admission that is suspected secondary to acute infection. Very good therapy scores, stable for discharge home with no therapy needs. 5. Hypertension ? BP stable to mildly hypertensive on admit. Continue home medications. 6. Tobacco use disorder ? Denied need for NRT while inpatient. Discussed cessation on discharge. Total clinical time spent by myself addressing the patient's medical issues, reviewing all the data, and collaborating with patient's care team: 35 minutes. Physical Exam Const alert, oriented x3, no apparent distress and average body habitus Constitutional Narrative: Pleasant elderly female, energy improved from admission, sitting back comfortably in bedside chair, conversing normally, in no acute distress. General Appearance: cooperative and comfortable HEENT normocephalic, head/scalp atraumatic, hearing grossly normal bilaterally, nasal mucous membranes and turbinates normal and moist oral mucous membranes Eyes PERRL, EOMs intact bilaterally and conjunctivae normal Neck full ROM Chest inspection of chest normal Resp normal respiratory effort, normal air movement, no use of accessory muscles and clear to auscultation bilaterally Cardio regular rate, regular rhythm, no murmurs and peripheral pulses 2+ throughout GI normal to inspection, nondistended, normoactive bowel sounds, soft to palpation, non-tender and non-distended Bladder / Kidney Exam: bladder normal to palpation and No no CVA tenderness Back/Spine normal ROM Extremity normal to inspection, full ROM and no pedal edema Skin no rashes or lesions noted Psych mental status grossly normal Weight / BMI Weight Weight: 61.1 kg Body Mass Index (BMI) 26.4 ABG / Lab / Microbiology Data 09/01/24 06:33 09/01/24 06:33 Laboratory: Laboratory Results - last 24 hr 09/01/24 06:33: WBC 10.5, RBC 3.48 L, Hgb 11.4 L, Hct 32.6 L, MCV 93.7, MCH 32.8 H, MCHC 35.0, RDW Std Deviation 43.4, RDW Coeff of [place]um[place] 12.6, Plt Count 286, MPV 9.7, Sodium 133, Potassium 3.5, Chloride 99, Carbon Dioxide 24.1, Anion Gap 10, BUN 9, Creatinine 0.48 L, Estim Creat Clear Calc 49.63 L, Est GFR (MDRD) Non-Af 99, BUN/Creatinine Ratio 18.0, Glucose 108 H, Calcium 8.5 Microbiology: Microbiology 08/30/24 19:28 Urine, Clean Catch Urine Culture - Preliminary Presumptive E. coli D/C Instructions Discharge Diet: No restrictions DC O2, CPAP, BIPAP Needs Home O2 Discharge instructions: No Meaningful Use Info Meaningful Use Meaningful Use Diagnoses (Choose all that apply): None applicable Ischemic Stroke Statin Dosing Therapy Reference: STATIN DOSE THERAPY REFERENCE: * Patients > 75 years receive moderate or high dose statin therapy. * Patients 75 years or YOUNGER should receive HIGH intensity statin dose unless contraindicated. You will be required to document reason for non-treatment if statin daily dose does not meet guidelines. HIGH DOSE STATIN THERAPY DAILY Atorvastatin > than or = to 40 mg Rosuvastatin > than or = to 20 mg Amlodipine + Atorvastatin > than or = to 2.5/40 mg Ezetimibe + Simvastatin 10/80 mg Simvastatin 80mg Discharge Plan Admission Admit Date/Time: 08/30/24 21:16 Primary Reason for Your Visit: UTI symptoms Attending Provider: Steven Hobson Primary Care Provider: Talat Wright Consulting Providers: Lisa Mariscal Discharge Orders/Prescriptions Prescriptions: New ciprofloxacin HCl 250 mg tablet 250 mg PO BID 5 Days Qty: 10 0RF Continued metoprolol succinate 100 mg tablet extended release 24 hr 100 mg PO DAILY losartan-hydrochlorothiazide 100-25 mg tablet 1 tab PO DAILY ammonium lactate 12 % cream topical DAILY PRN (Reason: dry skin) Discontinued cephalexin 500 mg capsule 500 mg PO BID Referrals / Follow Up: Talat Wright MD [Primary Care Provider] - Disposition Disposition (needs filled in before D/C Order can be placed): Home, Self Care Charges/Coding Visit Charges Inpatient E&M: 61221 Disch Hosp >30min
[2024-09-01 09:35] VITALS: BP 110/61; PULSE 74; RESP 16; TEMP 36.7; O2SAT 97
[2024-09-01 09:46] VITALS: PULSE 74
[2024-09-01] MEDS: Metoprolol(XL)Succ 100 MG Tablet PO (09:46)
== END 2024-09-01 11:00 | disposition home or self-care (01) | DRG 690 ==
LOC: ED 21:33 → MS3 21:45
PROVIDERS: Physician Assistant; Admitting Provider Family Medicine; Emergency Provider Surgery; PCP Family Medicine; Visit Provider Hospitalist
DX: N10 Acute pyelonephritis (principal); E87.1 Hypo-osmolality and hyponatremia; R62.7 Adult failure to thrive; I10 Essential (primary) hypertension; E87.6 Hypokalemia; E86.0 Dehydration; E86.1 Hypovolemia; F17.210 Nicotine dependence, cigarettes, uncomplicated; D35.01 Benign neoplasm of right adrenal gland; D35.02 Benign neoplasm of left adrenal gland; R73.9 Hyperglycemia, unspecified; Z68.26 Body mass index [BMI] 26.0-26.9, adult; R53.81 Other malaise; Z79.899 Other long term (current) drug therapy
CPT/HCPCS: 36415; 74176; 80048; 80053; 81001; 83036; 83605; 83735; 84100; 85025; 85027; 87086; 87088; 94668; 97161; 97802; 99284; 99406; A4216

== ENCOUNTER 2024-10-08 07:51 | Inpatient (IN) | payer MEDICARE, SELFPAY ==
[2024-10-08] VITALS (11 sets, daily range): BP systolic 105–149; BP diastolic 52–80; PULSE 89–129; RESP 16–21; TEMP 36.3–37.7; O2SAT 94–100; BMI 24.4
--- NOTE | 2024-10-08 08:05 | EKG12_ITS ---
Test Reason : DIZZINESS Blood Pressure : */* mmHG Vent. Rate : 108 BPM Atrial Rate : 108 BPM P-R Int : 166 ms QRS Dur : 80 ms QT Int : 322 ms P-R-T Axes : 67 68 44 degrees QTcB Int : 431 ms Sinus tachycardia Septal infarct , age undetermined Abnormal ECG Confirmed by De Lynn ([id number]), purchase request editor TAMIKA CELIS ([id number]) on 10/09/2024 6:14:11 AM Referred By: Confirmed By: De Lynn
--- NOTE | 2024-10-08 08:06 | EDS_ITS ---
HPI History of Present Illness Chief Complaint: Dizziness Narrative Narrative: 74-year-old female past medical history of hypertension, on metoprolol, presents with her because of greater than a month of lightheadedness, dizziness, and fatigue. She relates history that she was seen in the emergency department in early August and diagnosed with a UTI. She took antibiotics and stated that her dysuria had cleared up, but has returned. She feels lightheaded when she stands. She denies any recent fevers or chills, no cough or shortness of breath, no nausea or vomiting, but her burning with urination returned. She feels somewhat weak and lightheaded. No abdominal pain, no other symptoms. [facility] Medical History Tobacco use Hypertension Home Medications ?Medication ?Instructions ?Recorded ?Last Taken ?Type losartan 100 1 tab PO DAILY 08/30/24 Unkn own History mg-hydrochlorothiazide 25 mg tablet metoprolol succinate 100 mg 100 mg PO DAILY 08/30/24 U nknown History tablet,extended release 24 hr Allergy/AdvReac Type Severity Reaction Status Date / Time No Known Allergies Allergy Verified 10/08/24 07:52 Family History Mother Diabetes Father Colon cancer Diagnosed in his 60s. Surgical History S/P appendectomy History of tonsillectomy and adenoidectomy Status post bilateral total hip replacement Social History household members: spouse Smoking Status: Current some day smoker tobacco type: cigarettes alcohol intake: current alcohol intake frequency: 0-2 drinks per day Alcohol type: wine substance use type: does not use ROS ROS ED ROS Narrative Review of systems positive for dysuria/burning with urination, lightheadedness, dizziness, and fatigue. Her symptoms have been ongoing for weeks, if not over 1 month. No exacerbating or alleviating factors except for lightheadedness worse with standing. No fevers or chills, no nausea or vomiting, no cough or shortness of breath. EXAM Physical Exam Narrative Exam Narrative: Afebrile. Vital signs noted. Nontoxic-appearing. Cardiovascular examination of is a regular rate and rhythm. Lungs are clear to auscultation bilaterally. Abdomen is soft, nontender, with positive bowel sounds. No guarding or rebound. Neurological examination shows her to be awake, alert, oriented x 3, nonfocal, nonlateralizing. No pedal edema. Const Vital Signs: 10/08/24 07:52 10/08/24 10:00 Temperature 98.5 F Temperature Source Temporal Pulse Rate 99 101 H Respiratory Rate 16 16 Blood Pressure 105/66 144/75 H Blood Pressure Mean 79 98 Pulse Ox 100 96 Oxygen Delivery Method Room Air Room Air MDM MDM MDM Narrative Medical decision making narrative: The differential diagnosis includes but not limited to orthostatic hypotension versus UTI versus dehydration versus other electrolyte imbalance versus anemia. Clinically, I do not think that she is anemic requiring transfusion. Laboratory work will be checked. I do not feel she needs CT imaging of her brain because her symptoms have been ongoing for a month so I doubt intracranial hemorrhage, and she has no focal deficit so I have lower suspicion for stroke. I reviewed her laboratory work and she has a leukocytosis of 22.3. This is much higher when compared to prior her laboratory work. Hemoglobin 13.8 with hematocrit 38.9, platelet count 255. Sodium is low at 127 with potassium 2.9, chloride low at 85 consistent with dehydration. Glucose elevated at 183, LFTs grossly unremarkable. As she has a leukocytosis above 20, blood cultures were added as well as lactic acid. Given her hypokalemia magnesium was added as well. Chest x-ray in 1 view obtained and interpreted by myself independently shows no evidence of pneumonia. I reviewed the radiology report which confirms my independent interpretation. I reviewed her lactic acid is normal at 1.5. Magnesium is normal at 1.9. I reviewed her urinalysis and although there are 5-10 squamous epithelial cells, she has 25-50 WBCs and 3+ bacteria. Urine culture is pending and she was started on Rocephin 1 g intravenously. Given her SIRS and UTI, I do feel that she merits at least observation. Patient will be discussed with the hospitalist. The patient was discussed with Dr. Talley for admission to the medical surgical floor. Patient is in stable condition. History & Record Review Discussion w/independent historian: Patient Lab Data Attestation: I reviewed the patient's lab results. Labs: Laboratory Results - last 24 hr 10/08/24 10/08/24 10/08/24 08:00 09:05 09:42 WBC 22.3 H RBC 4.23 Hgb 13.8 Hct 38.9 MCV 92.0 MCH 32.6 H MCHC 35.5 RDW Std Deviation 47.4 H RDW Coeff of Saumya 14.1 Plt Count 255 MPV 9.8 Immature Gran % (Auto) 1.300 H Neut % (Auto) 79.9 H Lymph % (Auto) 5.5 L [place] % (Auto) 6.2 Eos % (Auto) 6.8 H Baso % (Auto) 0.3 Absolute Neuts (auto) 17.8 H Absolute Lymphs (auto) 1.23 Nucleated RBC % 0 Sodium 127 L Potassium 2.9 L Chloride 85 L Carbon Dioxide 25.8 Anion Gap 16 H BUN 15 Creatinine 0.87 Estim Creat Clear Calc 43.41 L Est GFR (MDRD) Non-Af 69 BUN/Creatinine Ratio 17.5 Glucose 183 H Lactic Acid 1.5 Calcium 9.5 Magnesium 1.9 Total Bilirubin 1.31 H AST 21 ALT 19 Alkaline Phosphatase 45 Total Protein 7.1 Albumin 4.2 Globulin 3.0 Albumin/Globulin Ratio 1.4 Urine Color Yellow Urine Clarity Sl. Cloudy Urine pH 6.0 Ur Specific [place] 1.020 Urine Protein 500 H Urine Glucose (UA) 50 H Urine Ketones 50 H Urine Occult Blood 150 H Urine Nitrite Positive H Urine Bilirubin Negative Urine Urobilinogen 1 H Ur Leukocyte Esterase 500 H Urine RBC 0-5 SEEN Urine WBC 25-50 SEEN Ur Squamous Epith Cells 5-10 SEEN Urine Bacteria 3+ Urine Mucus 0 SEEN Radiography Diagnostic Testing: Clinical Impression(s) from Imaging Studies Chest X-Ray 10/08/24 08:48 IMPRESSION: No acute infiltrate is seen. Reading Location: [facility] Management Discussion w/another healthcare provider: Hospitalist Discharge Plan Dx/Rx/DC Orders Clinical Impression: Leukocytosis, Hyponatremia, Hypokalemia, Fatigue, Lightheadedness, SIRS (systemic inflammatory response syndrome) Disposition Disposition: [facility]
[2024-10-08] MEDS: 0.9% Normal Saline (1000mL) 1,000 ML 1000 ML IV (08:13)
[2024-10-08 08:15] LABS: Absolute Lymphocyte Count 1.23 X10^3/uL (0.83-4.51); Absolute Neutrophil Count 17.8 X10^3/uL (2.0-7.7); Basophil# 0.07 X10^3/uL; Basophil% 0.3 % (0-1); Eosinophil# 1.52 X10^3/uL; Eosinophils% 6.8 % (0-5); Hematocrit 38.9 % (37-47); Hemoglobin 13.8 g/dL (12.0-15.0); Lymphocyte # 1.23 X10^3/ul (0.83-4.51); Lymphocyte % 5.5 % (19-41); Mean Corp Hgb Conc 35.5 g/dL (32-36); Mean Corpuscular Hgb 32.6 pg (27.0-32.0); Mean Platelet Vol. 9.8 fl (6.2-12.0); Monocyte# 1.39 X10^3/uL; Monocyte% 6.2 % (0-10); NRBC Flagged by Analyzer 0 % (0-5); Neutrophil # 17.82 X10^3/uL (2.7-7.7); Neutrophil % 79.9 % (47-70); POSITIVE MORPHOLOGY YES; Platelet Count 255 K/mm3 (150-450); RBC Distribution Width CV 14.1 % (11.6-14.6); RBC Distribution Width SD 47.4 fl (35.1-43.9); Red Blood Count 4.23 M/mm3 (4.2-5.4); White Blood Count 22.3 K/mm3 (4.4-11.0)
[2024-10-08 08:45] LABS: Differential Indicated SCAN CRITERIA MET
--- NOTE | 2024-10-08 08:48 | RAD_ITS ---
PROCEDURE: CHEST 1 VIEW (PORTABLE) 10/08/2024 REASON FOR EXAM: CAD, LEUKOCYTOSIS TECHNIQUE: Frontal view of the chest. COMPARISON: None FINDINGS: Hardware: EKG electrodes are seen. Heart: The heart size is normal. Lungs: The lungs are clear. Bones: Degenerative changes are identified within the thoracic spine. Other: Tortuosity of the thoracic aorta. Questionable hiatal hernia. RAD/Chest 1 View (Portable) IMPRESSION: No acute infiltrate is seen. Reading Location: [facility]-
[2024-10-08 08:54] LABS: ALB/GLOB Ratio 1.4 RATIO (0.9-2.4); AST(SGOT) 21 U/L (<=31); Alanine Aminotransfer ALT/SGPT 19 U/L (<=34); Albumin, Serum 4.2 g/dL (3.4-4.8); Alkaline Phosphatase 45 U/L (35-104); Anion Gap 16 (5-15); BUN 15 mg/dL (4-19); BUN/Creat Ratio 17.5 RATIO (10-20); Calcium,Total 9.5 mg/dL (7.6-11.0); Carbon Dioxide 25.8 mmol/L (21.0-32.0); Chloride 85 mmol/L (98-108); Creatinine, Serum 0.87 mg/dL (0.70-1.20); EST Glomerular Filtration Rate 69 (>60); Estimated Creatinine Clearance 43.41 ml/min (50-250); Glucose 183 mg/dL (70-99); Potassium 2.9 mmol/L (3.3-5.1); Protein, Total 7.1 g/dL (5.9-8.4); Sodium Level 127 mmol/L (133-145); Total Bilirubin 1.31 mg/dL (0.00-1.30)
[2024-10-08 09:45] LABS: Lactic Acid 1.5 mmol/L (0.0-2.0)
[2024-10-08 09:48] LABS: Magnesium 1.9 mg/dL (1.5-2.2)
[2024-10-08 09:50] LABS: Mucous, Urine 0 SEEN /hpf (<or=2+)
[2024-10-08 09:56] LABS: Color, Urine Yellow (Yellow); Glucose, Dipstick 50 mg/dl (Normal); Ketone-Dipstick 50 mg/dl (Negative); Leukocyte Esterase-Dipstick 500 /ul (Negative); Nitrite-Dipstick Positive (Negative); Occult Blood-Urine 150 /ul (Negative); Protein-Dipstick 500 mg/dl (Negative); Urine Bilirubin Dipstick Negative (Negative); Urine Clarity Sl. Cloudy (Clear); Urine Urobilinogen 1 mg/dl (Normal)
[2024-10-08 10:03] LABS: Bacteria 3+ /hpf (None Seen)
[2024-10-08 10:04] LABS: Red Blood Cells-Urine 0-5 SEEN /hpf (0-5); Squamous Epithelial Cells - UA 5-10 SEEN /hpf (5-10); White Blood Cells 25-50 SEEN /hpf (0-5)
[2024-10-08] MEDS: Potassium Chloride Oral Tablet 20 MEQ 40 MEQ PO (10:18)
--- NOTE | 2024-10-08 10:18 | PCM.HP.STD ---
HPI - General General Date of Admission: 10/08/24 Date of Service: 10/08/24 Chief Complaint: dizziness HPI Narrative JAYLENE ORTEGA, is a 74 F with a PMh as outlined who presents via [facility] ED on 10/08/2024 with a complaint of dizziness, lightheadedness and weakness which had been going on for about a month. She feels lightheaded when she stands up. She was recently admitted in August 2024 for UTI and pylenonephritis. She was treated with antibiotics discharged on 09/01/2024. She went home and says she completed her antibiotic course but her symptoms persisted so she came in to the ED. she said she tried getting up to go to the kitchen today and felt dizzy and lightheaded so she passed out. She says she was alone at that time. She came around quickly but was too weak to get off the floor until after 30 minutes. She denied any nausea or vomiting and says she had been eating and drinking well. She admits to urinary frequency but denied any offensive smell to her urine or any dysuria. Review of systems otherwise negative. Vitals in the ED were Bp of 144/75, SD of 101, RR of 16 and oxygen sats of 96% on room air. CBC showed wbc of 22.3, hb of 13.8 and platelets of 255. Chemistry showed sodium of 127, potassium of 2.9, bicarb of 25.8 and anion gap of 16. CXR showed no acute cardiopulmonary process. Urinalysis showed 3+ bacteria with elevated leukocyte esterase of 500. She has been admitted to be managed for syncope likely due to dehydration and possible orthostatic hypotension as well as UTI, hypokalemia and hyponatremia. [facility] Medical History Tobacco use Hypertension Home Medications ?Medication ?Instructions ?Recorded ?Last Taken ?Type losartan 100 1 tab PO DAILY 08/30/24 Unknown History mg-hydrochlorothiazide 25 mg tablet metoprolol succinate 100 mg 100 mg PO DAILY 08/30/24 Unknown History tablet,extended release 24 hr Allergy/AdvReac Type Severity Reaction Status Date / Time No Known Allergies Allergy Verified 10/08/24 07:52 Family History Mother Diabetes Father Colon cancer Diagnosed in his 60s. Surgical History S/P appendectomy History of tonsillectomy and adenoidectomy Status post bilateral total hip replacement Social History household members: spouse Smoking Status: Current some day smoker tobacco type: cigarettes alcohol intake: current alcohol intake frequency: 0-2 drinks per day Alcohol type: wine substance use type: does not use ROS Constitutional Constitutional: Reports fatigue, malaise and weakness; Denies anorexia, chills or fever(s) Eyes Eyes: Denies change in vision ENT HEENT: Denies dysphagia, headache(s) or sore throat Cardiovascular Cardiovascular: Reports lightheadedness and syncope; Denies chest pain, dyspnea on exertion, edema, orthopnea, palpitations, paroxysmal nocturnal dyspnea or rapid heart rate Respiratory/Chest Respiratory/Chest: Denies cough, dyspnea, shortness of breath at rest or shortness of breath with exertion Gastrointestinal Gastrointestinal: Denies abdominal pain, diarrhea, nausea or vomiting Genitourinary Genitourinary: Reports urinary frequency; Denies burning urination or dysuria Musculoskeletal Musculoskeletal: Denies arthralgias or joint pain Neurologic Neurologic: Reports dizziness and syncope; Denies confusion, focal weakness, headache(s), numbness, paresthesias, seizure-like activity or seizures Psychiatric Psychiatric: Denies anxiety Vital Signs Vital Signs Vital Signs: 10/08/24 07:52 10/08/24 10:00 Temperature 98.5 F Temperature Source Temporal Pulse Rate 99 101 H Respiratory Rate 16 16 Blood Pressure 105/66 144/75 H Blood Pressure Mean 79 98 Pulse Ox 100 96 Oxygen Delivery Method Room Air Room Air Weight Weight: 125 lb Body Mass Index (BMI) 24.4 Physical Exam Const alert, oriented x3 and no apparent distress Constitutional Narrative: frail General Appearance: cooperative HEENT normocephalic and head/scalp atraumatic HEENT Narrative: dry oral mucosa Eyes PERRL and EOMs intact bilaterally Neck no lymphadenopathy and supple Resp normal respiratory effort, no use of accessory muscles and clear to auscultation bilaterally Cardio regular rate, regular rhythm, S1 normal heart sound, S2 normal heart sound and no murmurs GI normal to inspection, nondistended, normoactive bowel sounds, soft to palpation and non-tender Extremity normal to inspection, full ROM and no clubbing, cyanosis or edema Neuro oriented x3, CN's II-XII intact bilaterally, moves all extremities and no focal motor deficits Sensorium / Orientation: awake and alert Motor Exam: strength 5/5 throughout Psych affect normal Results Lab / Micro Data 10/08/24 08:00 10/08/24 08:00 Labs: Laboratory Results - last 24 hr 10/08/24 08:00: WBC 22.3 H, RBC 4.23, Hgb 13.8, Hct 38.9, MCV 92.0, MCH 32.6 H, MCHC 35.5, RDW Std Deviation 47.4 H, RDW Coeff of Saumya 14.1, Plt Count 255, MPV 9.8, Immature Gran % (Auto) 1.300 H, Neut % (Auto) 79.9 H, Lymph % (Auto) 5.5 L, [place] % (Auto) 6.2, Eos % (Auto) 6.8 H, Baso % (Auto) 0.3, Absolute Neuts (auto) 17.8 H, Absolute Lymphs (auto) 1.23, Nucleated RBC % 0, Sodium 127 L, Potassium 2.9 L, Chloride 85 L, Carbon Dioxide 25.8, Anion Gap 16 H, BUN 15, Creatinine 0.87, Estim Creat Clear Calc 43.41 L, Est GFR (MDRD) Non-Af 69, BUN/Creatinine Ratio 17.5, Glucose 183 H, Calcium 9.5, Magnesium 1.9, Total Bilirubin 1.31 H, AST 21, ALT 19, Alkaline Phosphatase 45, Total Protein 7.1, Albumin 4.2, Globulin 3.0, Albumin/Globulin Ratio 1.4 10/08/24 09:05: Lactic Acid 1.5 10/08/24 09:42: Urine Color Yellow, Urine Clarity Sl. Cloudy, Urine pH 6.0, Ur Specific [place] 1.020, Urine Protein 500 H, Urine Glucose (UA) 50 H, Urine Ketones 50 H, Urine Occult Blood 150 H, Urine Nitrite Positive H, Urine Bilirubin Negative, Urine Urobilinogen 1 H, Ur Leukocyte Esterase 500 H, Urine RBC 0-5 SEEN, Urine WBC 25-50 SEEN, Ur Squamous Epith Cells 5-10 SEEN, Urine Bacteria 3+, Urine Mucus 0 SEEN Imaging Radiology Impression Chest X-Ray 10/08/24 08:48 IMPRESSION: No acute infiltrate is seen. Reading Location: [facility] Assessment & Plan Assessment/Plan (1) Lightheadedness: (2) Fatigue: (3) Leukocytosis: (4) Hyponatremia: (5) Hypokalemia: PLAN: Plan #Syncope likely due to orthostatic hypotension and dehydration Admit to [facility]. Patient admitted with a complaint of syncope. His sodium is low as well as her potassium and chloride. Even though she says she has been eating and drinking which she says she has not been feeling very well for about a week plus now. I therefore do think patient was likely dehydrated. Her dizziness gets worse with sitting up. Will check orthostatics. Hydrate with IV fluid normal saline at 125 cc/h. PT OT consult. Fall precautions. #Recurrent UTI Was recently admitted in August and managed for acute UTI. Urinalysis shows 3+ bacteria as well as elevated nitrites and leukocyte esterase. Urine and blood cultures ordered. Her previous urine cultures in August 2024 grew E. coli Will start on IV Zosyn WBC markedly elevated at 22.3. #Hyponatremia: Sodium is 127. Will hydrate with IV fluids and trend. #Hypokalemia: Potassium is 2.9. Will replace aggressively and monitor. #Hypertension: On metoprolol and losartan. Hold hydrochlorothiazide. DVT prophylaxis: Lovenox CODE STATUS: Full code Patient counseled extensively about different types of CODE STATUS including full code, DNR CCA and DNR CCA. Patient elects to be full code. Total sitj-ze-yrek time 16 minutes. Charges/Coding Visit Charges Inpatient E&M: 20028 Init Hosp L3 Procedures Hospitalists Procedures: 29091 Advncd Care Plan 30 Min
[2024-10-08] MEDS: Ceftriaxone 1 GM/50 ML BAG IV (10:39)
[2024-10-08] MEDS: 0.9% Saline Lock 10 ML Syringe IV (13:47)
[2024-10-08] MEDS: Piperacil/Tazobactam 3.375 GM in 0.9% Normal Saline (50mL MB+) 50 ML IV ×2 (13:48→22:30)
[2024-10-08] MEDS: 0.9% Normal Saline (1000mL) 1,000 ML 125 ML IV ×2 (13:48→22:24)
[2024-10-08] MEDS: 0.9% Normal Saline (250mL Bag) 250 ML 15 ML IV (13:49)
[2024-10-08] MEDS: Potassium Chloride 10mEq/100mL 10 MEQ/100 ML IV.SOLN. 100 MEQ IV BOLUS ×4 (19:05→23:30)
[2024-10-08] MEDS: Acetaminophen 325 MG Tablet 650 MG PO (22:24)
[2024-10-09] VITALS (10 sets, daily range): BP systolic 117–147; BP diastolic 66–76; PULSE 73–95; RESP 16–18; TEMP 36.7–37.1; O2SAT 92–97
[2024-10-09] MEDS: Acetaminophen 325 MG Tablet 650 MG PO (04:42)
[2024-10-09] MEDS: Piperacil/Tazobactam 3.375 GM in 0.9% Normal Saline (50mL MB+) 50 ML IV (04:43)
[2024-10-09 07:20] LABS: Absolute Lymphocyte Count 0.98 X10^3/uL (0.83-4.51); Absolute Neutrophil Count 14.4 X10^3/uL (2.0-7.7); Basophil# 0.04 X10^3/uL; Basophil% 0.2 % (0-1); Eosinophil# 0.25 X10^3/uL; Eosinophils% 1.4 % (0-5); Hematocrit 32.1 % (37-47); Hemoglobin 11.1 g/dL (12.0-15.0); Lymphocyte # 0.98 X10^3/ul (0.83-4.51); Lymphocyte % 5.6 % (19-41); Mean Corp Hgb Conc 34.6 g/dL (32-36); Mean Corpuscular Hgb 32.5 pg (27.0-32.0); Mean Corpuscular Volume 93.9 fL (81-99); Mean Platelet Vol. 9.8 fl (6.2-12.0); Monocyte# 1.49 X10^3/uL; Monocyte% 8.6 % (0-10); NRBC Flagged by Analyzer 0 % (0-5); Neutrophil # 14.39 X10^3/uL (2.7-7.7); Neutrophil % 82.9 % (47-70); Platelet Count 210 K/mm3 (150-450); RBC Distribution Width SD 47.8 fl (35.1-43.9); Red Blood Count 3.42 M/mm3 (4.2-5.4); White Blood Count 17.4 K/mm3 (4.4-11.0)
[2024-10-09 07:45] LABS: Anion Gap 10 (5-15); BUN 12 mg/dL (4-19); BUN/Creat Ratio 20.4 RATIO (10-20); Calcium,Total 7.9 mg/dL (7.6-11.0); Carbon Dioxide 19.8 mmol/L (21.0-32.0); Chloride 99 mmol/L (98-108); Creatinine, Serum 0.61 mg/dL (0.70-1.20); EST Glomerular Filtration Rate 93 (>60); Glucose 141 mg/dL (70-99); Potassium 3.4 mmol/L (3.3-5.1); Sodium Level 129 mmol/L (133-145)
[2024-10-09] MEDS: Losartan Potassium 100 MG Tablet PO (08:20)
[2024-10-09] MEDS: Metoprolol(XL)Succ 100 MG Tablet PO (08:20)
[2024-10-09] MEDS: Enoxaparin 40 MG/0.4 ML Syringe SC (08:20)
--- NOTE | 2024-10-09 09:36 | PN_ITS ---
Subjective Subjective Patient seen and examined with her nurse by her bedside. HEr was by her bedside. She still felt weak and tired. She denied any chills, cough, chest pain, palpitations, nausea, vomiting or any other symptoms. She admitted to some fever ovenight. Review of systems is otherwise negative. Objective Data Objective Data Vital Signs: Vital Signs Temp Pulse Resp BP Pulse Ox O2 Del Method 98.1 F 81 18 117/66 94 Room Air 10/09/24 08:17 10/09/24 08:20 10/09/24 08:17 10/09/24 08:17 10/09/24 08:23 10/09/24 08:23 Oxygen Delivery Method Room Air Weight: 125 lb Body Mass Index (BMI) 24.4 Intake & Output: Intake and Output for Last 24 Hours 10/07/24 10/08/24 10/09/24 23:59 23:59 23:59 Intake Total 2688.25 / 2688.25 1350 / 1350 Balance 2688.25 / 2688.25 1350 / 1350 Lab / Micro Data 10/09/24 07:02 10/09/24 07:02 Labs: Laboratory Results - last 24 hr 10/08/24 08:00: Magnesium 1.9 10/08/24 09:05: Lactic Acid 1.5 10/08/24 09:42: Urine Color Yellow, Urine Clarity Sl. Cloudy, Urine pH 6.0, Ur Specific [place] 1.020, Urine Protein 500 H, Urine Glucose (UA) 50 H, Urine Ketones 50 H, Urine Occult Blood 150 H, Urine Nitrite Positive H, Urine Bilirubin Negative, Urine Urobilinogen 1 H, Ur Leukocyte Esterase 500 H, Urine RBC 0-5 SEEN, Urine WBC 25-50 SEEN, Ur Squamous Epith Cells 5-10 SEEN, Urine Bacteria 3+, Urine Mucus 0 SEEN 10/09/24 07:02: WBC 17.4 H, RBC 3.42 L, Hgb 11.1 L, Hct 32.1 L, MCV 93.9, MCH 32.5 H, MCHC 34.6, RDW Std Deviation 47.8 H, RDW Coeff of [place]um[place] 14.0, Plt Count 210, MPV 9.8, Immature Gran % (Auto) 1.300 H, Neut % (Auto) 82.9 H, Lymph % (Auto) 5.6 L, [place] % (Auto) 8.6, Eos % (Auto) 1.4, Baso % (Auto) 0.2, Absolute Neuts (auto) 14.4 H, Absolute Lymphs (auto) 0.98, Nucleated RBC % 0, Sodium 129 L, Potassium 3.4, Chloride 99, Carbon Dioxide 19.8 L, Anion Gap 10, BUN 12, C reatinine 0.61 L, Estim Creat Clear Calc 47.20 L, Est GFR (MDRD) Non-Af 93, B UN/Creatinine Ratio 20.4 H, Glucose 141 H, Calcium 7.9 Micro: Microbiology 10/08/24 09:00 Blood Culture (Wb) - Anticubital Left Blood Culture - Preliminary GNR lactose electrical engineering technologist 10/08/24 09:13 Blood Culture (Wb) - Left Hand Blood Culture - Preliminary GNR lactose electrical engineering technologist Physical Exam Const alert, oriented x3 and no apparent distress Constitutional Narrative: frail General Appearance: cooperative HEENT normocephalic and head/scalp atraumatic Eyes PERRL and EOMs intact bilaterally Neck no lymphadenopathy and supple Resp normal respiratory effort, no use of accessory muscles and clear to auscultation bilaterally Cardio regular rate, regular rhythm, S1 normal heart sound, S2 normal heart sound and no murmurs GI normal to inspection, nondistended, normoactive bowel sounds, soft to palpation and non-tender Extremity normal to inspection, full ROM and no clubbing, cyanosis or edema Neuro oriented x3, CN's II-XII intact bilaterally, moves all extremities and no focal motor deficits Sensorium / Orientation: awake and alert Motor Exam: strength 5/5 throughout Psych affect normal Assessment & Plan Assessment/Plan (1) Lightheadedness: (2) Fatigue: (3) Leukocytosis: (4) Hyponatremia: (5) Hypokalemia: PLAN: Plan #Syncope likely due to orthostatic hypotension and dehydration * being hydrated wtih IVF. * PT/OT On board. * fall precautions. * * #Recurrent UTI with gram negative bacteremia * Was recently admitted in August and managed for acute UTI. Urinalysis shows 3+ bacteria as well as elevated nitrites and leukocyte esterase. * urine cultures pending. Blood cultures showing preliminary growth of gram negative bacteria in 2/2 samples. * on IV zosyn * wbc is down to 17 today * consult ID due to bacteremia * * * #Hyponatremia: Sodium is slightly up to 129 today. Will hydrate with IV fluids and trend. #Hypokalemia: resolved with replacement. #Hypertension: On metoprolol and losartan. Hold hydrochlorothiazide due to hyponatremia DVT prophylaxis: Lovenox CODE STATUS: Full code * Charges/Coding Visit Charges Inpatient E&M: 31541 Subs Hosp L2
--- NOTE | 2024-10-09 09:40 | US_ITS ---
PROCEDURE: KIDNEY AND BLADDER 10/09/2024 REASON FOR EXAM: PYELO TECHNIQUE: Bilateral renal and urinary bladder ultrasound. COMPARISON: CT from 08/30/2024 FINDINGS: Right kidney measures 12.2 x 6.9 x 5.9 cm and left kidney measures 13.4 x 5.5 x 6.5 cm. Both kidneys are normal in echotexture. Mild hydronephrosis of the bilateral kidneys. US/Kidney and Bladder IMPRESSION: Mild bilateral hydronephrosis. Reading Location: [id number]
--- NOTE | 2024-10-09 09:41 | CON.PCM.ID_ITS ---
Assessment & Plan Assessment/Plan (1) Bacteremia: PLAN: suspect urinary source. Will check renal ultrasound. Ucx pending. Will narrow to ceftriaxone. Will follow, thank you HPI Consult Data Date of Consult: 10/09/24 HPI Narrative Reason for Consultation: bacteremia HPI Narrative: JAYLENE ORTEGA, is a 74 F who was admitted 08/2024 with pyelo. Ucx with less than 1000 ecoli, discharged home with one week po cipro. [place] ok for a few days at home, but over past month ongoing fatigue, lightheaded. Had fever at home, increased urine frequency. No abd pain, no flank pain, no diarrhea. Came to ED 10/08, admitted on zosyn. Feeling better this AM. No dysuria. Full ROS performed and neg except as noted above. [facility] Medical History Tobacco use Hypertension Home Medications ?Medication ?Instructions ?Recorded ?Last Taken ?Type losartan 100 1 tab PO DAILY 08/30/24 Unkn own History mg-hydrochlorothiazide 25 mg tablet metoprolol succinate 100 mg 100 mg PO DAILY 08/30/24 U nknown History tablet,extended release 24 hr Allergy/AdvReac Type Severity Reaction Status Date / Time No Known Allergies Allergy Verified 10/08/24 07:52 Family History Mother Diabetes Father Colon cancer Diagnosed in his 60s. Surgical History S/P appendectomy History of tonsillectomy and adenoidectomy Status post bilateral total hip replacement Social History household members: spouse Smoking Status: Current some day smoker tobacco type: cigarettes alcohol intake: current alcohol intake frequency: 0-2 drinks per day Alcohol type: wine substance use type: does not use Physical Exam Const alert, oriented x3 and no apparent distress General Appearance: cooperative HEENT normocephalic and head/scalp atraumatic Eyes PERRL and EOMs intact bilaterally Neck supple and No nodes Resp normal air movement and clear to auscultation bilaterally Cardio regular rate and regular rhythm GI soft to palpation, non-tender and non-distended Extremity General Extremity: Negative for edema Skin no rashes or lesions noted Skin Narrative: no flank pain Neuro CN's II-XII intact bilaterally Lab / Micro Data Attestation: I reviewed the patient's lab results. 10/09/24 07:02 10/09/24 07:02 Labs: Laboratory Results - last 24 hr 10/08/24 08:00: Magnesium 1.9 10/08/24 09:05: Lactic Acid 1.5 10/08/24 09:42: Urine Color Yellow, Urine Clarity Sl. Cloudy, Urine pH 6.0, Ur Specific [place] 1.020, Urine Protein 500 H, Urine Glucose (UA) 50 H, Urine Ketones 50 H, Urine Occult Blood 150 H, Urine Nitrite Positive H, Urine Bilirubin Negative, Urine Urobilinogen 1 H, Ur Leukocyte Esterase 500 H, Urine RBC 0-5 SEEN, Urine WBC 25-50 SEEN, Ur Squamous Epith Cells 5-10 SEEN, Urine Bacteria 3+, Urine Mucus 0 SEEN 10/09/24 07:02: WBC 17.4 H, RBC 3.42 L, Hgb 11.1 L, Hct 32.1 L, MCV 93.9, MCH 32.5 H, MCHC 34.6, RDW Std Deviation 47.8 H, RDW Coeff of [place]um[place] 14.0, Plt Count 210, MPV 9.8, Immature Gran % (Auto) 1.300 H, Neut % (Auto) 82.9 H, Lymph % (Auto) 5.6 L, [place] % (Auto) 8.6, Eos % (Auto) 1.4, Baso % (Auto) 0.2, Absolute Neuts (auto) 14.4 H, Absolute Lymphs (auto) 0.98, Nucleated RBC % 0, Sodium 129 L, Potassium 3.4, Chloride 99, Carbon Dioxide 19.8 L, Anion Gap 10, BUN 12, C reatinine 0.61 L, Estim Creat Clear Calc 47.20 L, Est GFR (MDRD) Non-Af 93, B UN/Creatinine Ratio 20.4 H, Glucose 141 H, Calcium 7.9 Micro: Microbiology 10/08/24 09:00 Blood Culture (Wb) - Anticubital Left Blood Culture - Preliminary GNR lactose taxicab dispatcher 10/08/24 09:13 Blood Culture (Wb) - Left Hand Blood Culture - Preliminary GNR lactose taxicab dispatcher
[2024-10-09] MEDS: Ceftriaxone 2 GM in 0.9% Normal Saline (50mL MB+) 50 ML IV (10:17)
--- NOTE | 2024-10-09 12:34 | CASEMGMT ---
RN CM air crew officer CM to room to meet with pt for initial transition planning/care coordination assessment. RN YUDELKA introduced self and role at [facility], pt voices understanding and consents to assessment. Pt is A&O and answers all questions appropriately at this time. Pt lying in bed in no distress. Care providers, pharmacy, and demographics verified/updated. Strata: 1 PCP:[place] Specialists:Hernan, cardio. Pt states he will be retiring. She would like physicians directory w/[facility] info. Preferred Pharmacy: [facility] @ [facility]. Insurance: [employer]ARP [facility] Prescription Benefit: yes LNOK: Mayo Jennings, ; Gauri Strange, cousin Living Arrangements: Pt lives with in a single story home with 3 steps to enter with a rail. Pt reports she is I in ADL. Due to pt's increase in low energy and weakness, has been doing all IADL's. Transportation: Pt and both drive. DME:walk in shower with grab bar, cane, walker. Pt states she wasn't using the walker previously but will be using when she returns home d/t weakness. HHC/SNF: Denies hx of Discussed discharge planning. Pt wishes to return home and would like HHC. Discussed [facility]'s homebound requirements and she states she will be homebound for awhile until she gets stronger. She would like [facility] and declines wanting list of other HHC options. Pt states no further concerns/needs. CM to follow. Advised pt to ask CM if any further questions/concerns/needs arise, voices understanding. Plan: Home w/HHC Frankie MATHUR RN YUDELKA
--- NOTE | 2024-10-09 14:32 | CASEMGMT ---
Addendum entered by Tegan Driscoll 10/09/24 15:45: TC to Sonia at [facility], she states pt is out of service area and unable to accept. Original Note: TC to [facility], spoke with Sonia, referral made for SN and PT. Will await decision to accept.
--- NOTE | 2024-10-09 15:52 | CASEMGMT ---
Discharge Planning A list of?HH providers including quality and resource use data and consistent with the patient's preferred geographic region, medical needs, and insurance network was created in [employer] Guide.? This list was provided to the RN YUDELKA. Padmini Null, Discharge Planning Asst.
[2024-10-10] VITALS (10 sets, daily range): BP systolic 141–162; BP diastolic 75–83; PULSE 74–82; RESP 15–18; TEMP 36.6–37.1; O2SAT 96–97
[2024-10-10 06:05] LABS: Absolute Lymphocyte Count 1.53 X10^3/uL (0.83-4.51); Absolute Neutrophil Count 9.5 X10^3/uL (2.0-7.7); Basophil# 0.04 X10^3/uL; Basophil% 0.3 % (0-1); Eosinophil# 0.02 X10^3/uL; Eosinophils% 0.2 % (0-5); Hematocrit 33.3 % (37-47); Hemoglobin 11.7 g/dL (12.0-15.0); Lymphocyte # 1.53 X10^3/ul (0.83-4.51); Lymphocyte % 12.2 % (19-41); Mean Corp Hgb Conc 35.1 g/dL (32-36); Mean Corpuscular Hgb 32.9 pg (27.0-32.0); Mean Corpuscular Volume 93.5 fL (81-99); Mean Platelet Vol. 9.9 fl (6.2-12.0); Monocyte# 1.35 X10^3/uL; Monocyte% 10.8 % (0-10); NRBC Flagged by Analyzer 0 % (0-5); Platelet Count 231 K/mm3 (150-450); RBC Distribution Width CV 13.7 % (11.6-14.6); RBC Distribution Width SD 46.6 fl (35.1-43.9); Red Blood Count 3.56 M/mm3 (4.2-5.4); White Blood Count 12.5 K/mm3 (4.4-11.0)
[2024-10-10 06:37] LABS: Anion Gap 11 (5-15); BUN 11 mg/dL (4-19); BUN/Creat Ratio 21.5 RATIO (10-20); Calcium,Total 8.5 mg/dL (7.6-11.0); Chloride 98 mmol/L (98-108); Creatinine, Serum 0.49 mg/dL (0.70-1.20); EST Glomerular Filtration Rate 97 (>60); Glucose 109 mg/dL (70-99); Potassium 2.9 mmol/L (3.3-5.1); Sodium Level 131 mmol/L (133-145)
[2024-10-10] MEDS: Ceftriaxone 2 GM in 0.9% Normal Saline (50mL MB+) 50 ML IV (09:04)
[2024-10-10] MEDS: Losartan Potassium 100 MG Tablet PO (09:14)
[2024-10-10] MEDS: Metoprolol(XL)Succ 100 MG Tablet PO (09:15)
[2024-10-10] MEDS: Enoxaparin 40 MG/0.4 ML Syringe SC (09:15)
[2024-10-10] MEDS: Potassium Chloride Oral Tablet 20 MEQ 40 MEQ PO (09:47)
[2024-10-10] MEDS: 0.9% Normal Saline (250mL Bag) 250 ML 15 ML IV (10:22)
[2024-10-10] MEDS: Potassium Chloride 10mEq/100mL 10 MEQ/100 ML IV.SOLN. 100 MEQ IV BOLUS ×4 (10:22→15:51)
--- NOTE | 2024-10-10 10:37 | CASEMGMT ---
Addendum entered by Tegan Driscoll 10/10/24 12:02: ALMA JHA into pt room to check on pt choices, pt asks what HH will do. ALMA JHA explained to pt what services were ordered and the general idea of what HH encompasses. Pt states she does not think that she needs these services and hands back the list of DISPUTE RESOLUTION ANALYST. Pt states that her can and will assist her if needed. Pt denies any other homegoing needs. Original Note: ALMA JHA into pt room, pt aware that [facility] does not service her area. Provided pt with a DISPUTE RESOLUTION ANALYST list created by dc property management assistant. Pt to review and ALMA JHA to check back. Provided pt with a local healthcare provider list with the cardiologists highlighted.
[2024-10-10] MEDS: 0.9% Saline Lock 10 ML Syringe IV (12:47)
--- NOTE | 2024-10-10 13:20 | PCM.PN.ID ---
Physical Exam Narrative Feeling better, no abd pain, no fever, no n/v/d. Const alert and no apparent distress General Appearance: cooperative Resp normal air movement and clear to auscultation bilaterally Cardio regular rate and regular rhythm GI soft to palpation, non-tender and non-distended Skin no rashes or lesions noted ID ID: Route of nutrition/ use of supplements: [] Nutritional Intake: [] IV Site: [] Turpin Catheter: [] Assessment & Plan Assessment/Plan (1) Bacteremia: PLAN: suspect urinary source. Ucx and Bcx with ecoli. No stone of abscess on renal ultrasound. Cont ceftriaxone. Plan on home with 5 days po amox 500mg tid. Will follow as needed
--- NOTE | 2024-10-10 13:36 | PN_ITS ---
Subjective Subjective Patient seen and examined. She said she was feeling better today. She had no active complaints and had an uneventful night. Her urine cultures are growing E. coli and blood cultures also growing E. coli. Review of systems otherwise negative. Objective Data Objective Data Vital Signs: Vital Signs Temp Pulse Resp BP Pulse Ox O2 Del Method 98.7 F 78 17 146/82 H 97 Room Air 10/10/24 08:45 10/10/24 09:15 10/10/24 09:00 10/10/24 09:15 10/10/24 08:45 10/10/24 09:14 Oxygen Delivery Method Room Air Weight: 125 lb Body Mass Index (BMI) 24.4 Intake & Output: Intake and Output for Last 24 Hours 10/08/24 10/09/24 10/10/24 23:59 23:59 23:59 Intake Total 2688.25 / 2688.25 1880 / 1880 650 / 650 Balance 2688.25 / 2688.25 1880 / 1880 650 / 650 Lab / Micro Data 10/10/24 05:45 10/10/24 05:45 Labs: Laboratory Results - last 24 hr 10/10/24 05:45: WBC 12.5 H, RBC 3.56 L, Hgb 11.7 L, Hct 33.3 L, MCV 93.5, MCH 32.9 H, MCHC 35.1, RDW Std Deviation 46.6 H, RDW Coeff of [place]um[place] 13.7, Plt Count 231, MPV 9.9, Immature Gran % (Auto) 0.500, Neut % (Auto) 76.0 H, Lymph % (Auto) 12.2 L, [place] % (Auto) 10.8 H, Eos % (Auto) 0.2, Baso % (Auto) 0.3, Absolute Neuts (auto) 9.5 H, Absolute Lymphs (auto) 1.53, Nucleated RBC % 0, Sodium 131 L , Potassium 2.9 L, Chloride 98, Carbon Dioxide 22.0, Anion Gap 11, BUN 11, C reatinine 0.49 L, Estim Creat Clear Calc 47.20 L, Est GFR (MDRD) Non-Af 97, B UN/Creatinine Ratio 21.5 H, Glucose 109 H, Calcium 8.5 Micro: Microbiology 10/08/24 09:13 Blood Culture (Wb) - Left Hand Blood Culture - Final GNR lactose handbell choir director 10/08/24 09:42 Urine, Clean Catch Urine Culture - Final Escherichia coli 10/08/24 09:00 Blood Culture (Wb) - Anticubital Left Blood Culture - Final Escherichia coli Radiography Diagnostic Testing: Radiology Impression Renal Ultrasound 10/09/24 09:40 IMPRESSION: Mild bilateral hydronephrosis. Reading Location: [facility] Physical Exam Const alert, oriented x3 and no apparent distress Constitutional Narrative: frail General Appearance: cooperative HEENT normocephalic, head/scalp atraumatic and moist oral mucous membranes Eyes EOMs intact bilaterally Neck supple and no JVD Lymph Lymphatic: no lymphedema noted Resp normal respiratory effort, normal air movement, no use of accessory muscles and clear to auscultation bilaterally Cardio regular rate, regular rhythm, S1 normal heart sound, S2 normal heart sound and no murmurs GI normal to inspection, nondistended, normoactive bowel sounds, soft to palpation and non-tender Extremity normal to inspection and full ROM General Extremity: no tenderness to palpation of joints or extremities Skin General Skin Exam: no breakdown Neuro oriented x3, CN's II-XII intact bilaterally, moves all extremities and no focal motor deficits Sensorium / Orientation: awake and alert Motor Exam: strength 5/5 throughout Psych thought process normal, cooperative and affect normal Appearance: appropriate Assessment & Plan Assessment/Plan (1) Lightheadedness: (2) Fatigue: (3) Leukocytosis: (4) Hyponatremia: (5) Hypokalemia: PLAN: Plan #Syncope likely due to orthostatic hypotension and dehydration * being hydrated wtih IVF. * PT/OT On board. * fall precautions. * Resolved * #Recurrent UTI with gram negative bacteremia * Was recently admitted in August and managed for acute UTI. Urinalysis shows 3+ bacteria as well as elevated nitrites and leukocyte esterase. * Blood cultures growing E. coli. Urine culture is also growing E. coli. * Antibiotics narrowed down from IV Zosyn to IV ceftriaxone per ID. * #Hyponatremia: * Sodium is slightly up to 131 today. Thought to be due to dehydration in the setting of syncope. * Continue gentle hydration with IV fluid. #Hypokalemia: Potassium is 2.9. Replace aggressively and trend. Check magnesium levels. #Hypokalemia: resolved with replacement. #Hypertension: On metoprolol and losartan. Hold hydrochlorothiazide due to hyponatremia DVT prophylaxis: Lovenox CODE STATUS: Full code * Charges/Coding Visit Charges Inpatient E&M: 73768 Subs Hosp L2
[2024-10-11 03:00] VITALS: RESP 15
[2024-10-11 04:00] VITALS: BP 150/76; PULSE 54; PULSE 72; RESP 15; TEMP 36.9; O2SAT 99
[2024-10-11 06:32] LABS: Absolute Lymphocyte Count 1.71 X10^3/uL (0.83-4.51); Absolute Neutrophil Count 8.3 X10^3/uL (2.0-7.7); Basophil# 0.06 X10^3/uL; Basophil% 0.5 % (0-1); Eosinophils% 0.9 % (0-5); Hematocrit 34.2 % (37-47); Hemoglobin 11.9 g/dL (12.0-15.0); Lymphocyte # 1.71 X10^3/ul (0.83-4.51); Lymphocyte % 14.7 % (19-41); Mean Corp Hgb Conc 34.8 g/dL (32-36); Mean Corpuscular Hgb 32.5 pg (27.0-32.0); Mean Corpuscular Volume 93.4 fL (81-99); Mean Platelet Vol. 9.9 fl (6.2-12.0); Monocyte# 1.45 X10^3/uL; Monocyte% 12.4 % (0-10); NRBC Flagged by Analyzer 0 % (0-5); Neutrophil # 8.25 X10^3/uL (2.7-7.7); Neutrophil % 70.6 % (47-70); Platelet Count 285 K/mm3 (150-450); RBC Distribution Width CV 13.7 % (11.6-14.6); RBC Distribution Width SD 47.3 fl (35.1-43.9); Red Blood Count 3.66 M/mm3 (4.2-5.4); White Blood Count 11.7 K/mm3 (4.4-11.0)
[2024-10-11 06:58] LABS: Anion Gap 10 (5-15); BUN 9 mg/dL (4-19); BUN/Creat Ratio 20.6 RATIO (10-20); Calcium,Total 8.4 mg/dL (7.6-11.0); Carbon Dioxide 23.2 mmol/L (21.0-32.0); Chloride 99 mmol/L (98-108); Creatinine, Serum 0.45 mg/dL (0.70-1.20); EST Glomerular Filtration Rate 100 (>60); Glucose 119 mg/dL (70-99); Sodium Level 132 mmol/L (133-145)
[2024-10-11] MEDS: Ceftriaxone 2 GM in 0.9% Normal Saline (50mL MB+) 50 ML IV (09:31)
[2024-10-11 09:35] VITALS: BP 133/63; PULSE 75
[2024-10-11] MEDS: Losartan Potassium 100 MG Tablet PO (09:35)
[2024-10-11] MEDS: Metoprolol(XL)Succ 100 MG Tablet PO (09:35)
[2024-10-11] MEDS: Enoxaparin 40 MG/0.4 ML Syringe SC (09:36)
[2024-10-11 10:00] VITALS: BP 133/63; PULSE 75; RESP 16; TEMP 36.6; O2SAT 98
--- NOTE | 2024-10-11 14:14 | DCINST_ITS ---
Discharge Instructions Diet Discharge Diet: Low fat / Low cholesterol DC O2, CPAP, BIPAP needs Home O2 Discharge instructions: No Dressing / Incision Discharge Activity: Return to Normal Activity Weight Bearing Status: Weight bearing as tolerated Dressing / Incision Call your doctor if you observe: Fever of 101 or Higher, Shortness of breath, Dizziness, Swelling in the ankles and Chest pain Follow Up Care Test Results: Test results from this visit will be discussed in further detail at your follow- up appointment, if applicable. Discharge Plan Admission Admit Date/Time: 10/08/24 10:23 Primary Reason for Your Visit: UTI Attending Provider: Jeanine Talley Primary Care Provider: Talat Wright Consulting Providers: Clinton Rosales Instructions Patient Instructions: ED UTIs Women Additional Instructions / Restrictions: hydrochlorthiazide discontinued due to hyponatremia. Counseled to keep BP log at home and present to PCP for adjustment of meds as needed. Discharge Orders/Prescriptions Prescriptions: New losartan 100 mg Tablet 100 mg PO DAILY Qty: 30 2RF amoxicillin 500 mg tablet 500 mg PO Q8H 5 Days Qty: 15 0RF Continued metoprolol succinate 100 mg tablet extended release 24 hr 100 mg PO DAILY Discontinued losartan-hydrochlorothiazide 100-25 mg tablet 1 tab PO DAILY Referrals / Follow Up: Talat Wright MD [Primary Care Provider] - Within 1 Week Disposition Disposition (needs filled in before D/C Order can be placed): Home, Self Care
--- NOTE | 2024-10-11 14:14 | PCM.DC.SUM ---
Providers Date of Admission: 10/08/24 Date of Discharge: 10/11/24 Primary Care Physician: Dr. Talat Wright MD Consultations 10/09/24 09:39 Consult: Infectious Disease Routine Consulting Provider: Clinton Rosales Reason for Consult: gram negative bacteremia EMERGENT Consult: No Notified: Yes Date Notified: 10/09/24 Time Notified: 09:39 Method of Notification: Verbal Reason For Visit: UTI, DIZZINESS Diagnosis Discharge Diagnosis (1) Lightheadedness: Status: Acute Code(s): R42 - Dizziness and giddiness (2) Fatigue: Status: Acute Code(s): R53.83 - Other fatigue (3) Leukocytosis: Status: Acute Code(s): D72.829 - Elevated white blood cell count, unspecified (4) Hyponatremia: Status: Acute Code(s): E87.1 - Hypo-osmolality and hyponatremia (5) Hypokalemia: Status: Acute Code(s): E87.6 - Hypokalemia Plan #Syncope likely due to orthostatic hypotension and dehydration being hydrated wtih IVF. PT/OT On board. fall precautions. Resolved #Recurrent UTI with gram negative bacteremia Was recently admitted in August and managed for acute UTI. Urinalysis shows 3+ bacteria as well as elevated nitrites and leukocyte esterase. Blood cultures growing E. coli. Urine culture is also growing E. coli. Antibiotics narrowed down from IV Zosyn to IV ceftriaxone per ID. #Hyponatremia: Sodium is slightly up to 131 today. Thought to be due to dehydration in the setting of syncope. Continue gentle hydration with IV fluid. #Hypokalemia: Potassium is 2.9. Replace aggressively and trend. Check magnesium levels. #Hypokalemia: resolved with replacement. #Hypertension: On metoprolol and losartan. Hold hydrochlorothiazide due to hyponatremia DVT prophylaxis: Lovenox CODE STATUS: Full code Medications at Discharge Home Medications metoprolol succinate 100 mg tablet,extended release 24 hr 100 mg PO DAILY 08/30/24 amoxicillin 500 mg tablet 500 mg PO Q8H 5 days #15 tabs 10/11/24 losartan 100 mg tablet 100 mg PO DAILY #30 tabs 10/11/24 Hospital Course Operations None Procedures None Summary of Care Provided Minutes Spent on Discharge: 45 Hospital Course: JAYLENE ORTEGA, is a 74 F with a PMh as outlined who presents via hte ED on 10/08/2024 with a complaint of dizziness, lightheadedness and weakness which had been going on for about a month. She feels lightheaded when she stands up. She was recently admitted in August 2024 for UTI and pylenonephritis. She was treated with antibiotics discharged on 09/01/2024. She went home and says she completed her antibiotic course but her symptoms persisted so she came in to the ED. she said she tried getting up to go to the kitchen today and felt dizzy and lightheaded so she passed out. She says she was alone at that time. She came around quickly but was too weak to get off the floor until after 30 minutes. She denied any nausea or vomiting and says she had been eating and drinking well. She admits to urinary frequency but denied any offensive smell to her urine or any dysuria. Review of systems otherwise negative. Vitals in the ED were Bp of 144/75, VT of 101, RR of 16 and oxygen sats of 96% on room air. CBC showed wbc of 22.3, hb of 13.8 and platelets of 255. Chemistry showed sodium of 127, potassium of 2.9, bicarb of 25.8 and anion gap of 16. CXR showed no acute cardiopulmonary process. Urinalysis showed 3+ bacteria with elevated leukocyte esterase of 500. She was admitted to be managed for syncope likely due to dehydration and possible orthostatic hypotension as well as UTI, hypokalemia and hyponatremia. She was hydrated with IV fluids and started on IV Zosyn. Her hyponatremia resolved. Potassium was also aggressively replaced and the hypokalemia resolved. ID was consulted as blood and urine cultures were both positive for E. coli. This E. coli was pansensitive. She was continued on the Zosyn. Patient improved and felt much better. When she worked with physical therapy and did well. Per ID she could be discharged on p.o. amoxicillin 500 mg 3 times daily for 5 days. She was therefore discharged home on 10/11/2024 on p.o. amoxicillin 500 mg 3 times daily for 5 days. She is follow-up with her primary care doctor within 1 to 2 weeks. Of note her hydrochlorothiazide was discontinued and her losartan continued. Hydrochlorothiazide was discontinued due to hyponatremia. Patient was seen and examined prior to discharge. I saw patient with her nurse by her bedside. She had no active complaints and says she felt much better. She was eager to be discharged home. Review of systems otherwise negative. Labs and vitals reviewed. Home medication reviewed and reconciled. Physical Exam Const alert, oriented x3 and no apparent distress General Appearance: cooperative and comfortable Orientation / Consciousness: awake Exam Limitations: no limitations HEENT normocephalic, head/scalp atraumatic and moist oral mucous membranes Mouth: oral and palatal mucosa normal Eyes PERRL, EOMs intact bilaterally and conjunctivae normal Neck no lymphadenopathy, supple and no JVD Lymph Lymphatic: no lymphedema noted Resp normal respiratory effort, normal air movement, no use of accessory muscles and clear to auscultation bilaterally Cardio regular rate, regular rhythm, S1 normal heart sound, S2 normal heart sound and no murmurs GI normal to inspection, nondistended, normoactive bowel sounds, soft to palpation and non-tender Extremity normal to inspection, full ROM and no clubbing, cyanosis or edema General Extremity: no tenderness to palpation of joints or extremities Skin no rashes or lesions noted General Skin Exam: no breakdown Neuro oriented x3, CN's II-XII intact bilaterally, moves all extremities and no focal motor deficits Sensorium / Orientation: awake and alert Motor Exam: strength 5/5 throughout Psych thought process normal, cooperative and affect normal Appearance: appropriate Weight / BMI Weight Weight: 125 lb Body Mass Index (BMI) 24.4 ABG / Lab / Microbiology Data 10/11/24 06:11 10/11/24 06:11 Laboratory: Laboratory Results - last 24 hr 10/11/24 06:11: WBC 11.7 H, RBC 3.66 L, Hgb 11.9 L, Hct 34.2 L, MCV 93.4, MCH 32.5 H, MCHC 34.8, RDW Std Deviation 47.3 H, RDW Coeff of [place] 13.7, Plt Count 285, MPV 9.9, Immature Gran % (Auto) 0.900, Neut % (Auto) 70.6 H, Lymph % (Auto) 14.7 L, [place] % (Auto) 12.4 H, Eos % (Auto) 0.9, Baso % (Auto) 0.5, Absolute Neuts (auto) 8.3 H, Absolute Lymphs (auto) 1.71, Nucleated RBC % 0, Sodium 132 L, Potassium 4.0, Chloride 99, Carbon Dioxide 23.2, Anion Gap 10, BUN 9, Creatinine 0.45 L, Estim Creat Clear Calc 47.20 L, Est GFR (MDRD) Non-Af 100, BUN/Creatinine Ratio 20.6 H, Glucose 119 H, Calcium 8.4 Microbiology: Microbiology 10/08/24 09:13 Blood Culture (Wb) - Left Hand Blood Culture - Final GNR lactose sign out clerk 10/08/24 09:42 Urine, Clean Catch Urine Culture - Final Escherichia coli 10/08/24 09:00 Blood Culture (Wb) - Anticubital Left Blood Culture - Final Escherichia coli D/C Instructions Discharge Diet: Low fat / Low cholesterol Discharge Activity: Return to Normal Activity Weight Bearing Status: Weight bearing as tolerated Call your doctor if you observe: Fever of 101 or Higher, Shortness of breath, Dizziness, Swelling in the ankles and Chest pain DC O2, CPAP, BIPAP Needs Home O2 Discharge instructions: No DC home with Oxygen: No Meaningful Use Info Meaningful Use Meaningful Use Diagnoses (Choose all that apply): None applicable Ischemic Stroke Statin Dosing Therapy Reference: STATIN DOSE THERAPY REFERENCE: * Patients > 75 years receive moderate or high dose statin therapy. * Patients 75 years or YOUNGER should receive HIGH intensity statin dose unless contraindicated. You will be required to document reason for non-treatment if statin daily dose does not meet guidelines. HIGH DOSE STATIN THERAPY DAILY Atorvastatin > than or = to 40 mg Rosuvastatin > than or = to 20 mg Amlodipine + Atorvastatin > than or = to 2.5/40 mg Ezetimibe + Simvastatin 10/80 mg Simvastatin 80mg Discharge Plan Admission Admit Date/Time: 10/08/24 10:23 Primary Reason for Your Visit: UTI Attending Provider: Jeanine Talley Primary Care Provider: Talat Wright Consulting Providers: Clinton Rosales Instructions Patient Instructions: ED UTIs Women Additional Instructions / Restrictions: hydrochlorthiazide discontinued due to hyponatremia. Counseled to keep BP log at home and present to PCP for adjustment of meds as needed. Discharge Orders/Prescriptions Prescriptions: New losartan 100 mg Tablet 100 mg PO DAILY Qty: 30 2RF amoxicillin 500 mg tablet 500 mg PO Q8H 5 Days Qty: 15 0RF Continued metoprolol succinate 100 mg tablet extended release 24 hr 100 mg PO DAILY Discontinued losartan-hydrochlorothiazide 100-25 mg tablet 1 tab PO DAILY Referrals / Follow Up: Talat Wright MD [Primary Care Provider] - Within 1 Week Disposition Disposition (needs filled in before D/C Order can be placed): Home, Self Care Charges/Coding Visit Charges Inpatient E&M: 48862 Disch Hosp >30min
[2024-10-11 15:35] VITALS: BP 148/80; PULSE 70; RESP 16; TEMP 37; O2SAT 97
== END 2024-10-11 16:27 | disposition home or self-care (01) | DRG 312 ==
LOC: ED 10:11 → MS3 10:51
PROVIDERS: Admitting Provider Student in an Organized Health Care Education/Training Program; Emergency Provider Emergency Medicine; PCP Family Medicine; Visit Provider Student in an Organized Health Care Education/Training Program
DX: I95.1 Orthostatic hypotension (principal); R78.81 Bacteremia; E87.1 Hypo-osmolality and hyponatremia; N39.0 Urinary tract infection, site not specified; I10 Essential (primary) hypertension; E86.0 Dehydration; E87.6 Hypokalemia; D72.829 Elevated white blood cell count, unspecified; F17.210 Nicotine dependence, cigarettes, uncomplicated; R73.9 Hyperglycemia, unspecified; B96.20 Unspecified Escherichia coli [E. coli] as the cause of diseases classified elsewhere; Z79.899 Other long term (current) drug therapy
CPT/HCPCS: 36415; 71045; 76770; 80048; 80053; 81001; 83605; 83735; 85025; 87040; 87077; 87086; 87088; 87186; 93005; 97162; 97165; 97530; 99285; A4216; J0696